=== PATIENT | female | born 1970 | race Caucasian/White ===

== ENCOUNTER 2024-01-24 10:30 | Emergency (ER) | payer BC, SELFPAY ==
--- NOTE | 2024-01-24 10:30 | DI.RAD_ITS ---
Exam(s) XR RIBS LT W PA LAT CHEST EXAM: XR RIBS LT W PA LAT CHEST CLINICAL HISTORY: L rib pain s/p fall TECHNIQUE: 2D digital imaging was performed. Six images are obtained. COMPARISON: CR CHEST 2 VIEWS PA,LAT from 12/31/2007 FINDINGS: MEDIASTINUM: Normal. HEART: Normal. PULMONARY VASCULATURE: Normal. LUNGS: Plate atelectasis is seen in the left lung base. The lungs are otherwise clear. PLEURAL SPACE: No pleural effusion or pneumothorax. BONE:Within normal limits for the patient's age. LEFT RIBS: There is a nondisplaced fracture of the posterolateral aspect of the left 10th and 11th ri bs. OTHER FINDINGS:Normal. IMPRESSION: 1. Linear atelectasis in the left lower lobe laterally. 2. Nondisplaced acute fractures involving the posterolateral aspects of the left 10th and 11th ribs. DATA REPOSITORY: RADIATION DOSE DELIVERED:
--- NOTE | 2024-01-24 10:30 | RT.EKG_ITS ---
APPROVED REPORT Exam: Resting ECG Reason for Exam: fall onto L side of chest Patient Location: E HR:83 bpm ECG Measurements Heart Rate 83 AXIS HI 130 P 54 QRSd 90 QRS -63 QT 386 T 34 QTc 455 Conclusion Sinus rhythm, rate 83 No interval abnormalities No STEMI Inferior infarct, old
[2024-01-24 10:32] VITALS: BP 137/95; PULSE 99; RESP 16; TEMP 36.6; O2SAT 95
--- NOTE | 2024-01-24 10:49 | ED.GENADUL_ITS ---
Discharge Plan Disposition Patient Disposition: Home Discharge Details Clinical Impression: Multiple rib fractures Primary Care Provider: Renata Norris ED Provider: Glo Kauffman Home Meds and New Rx's Prescriptions: No Action CENTRUM 1 TAB tablet 1 tab PO DAILY LAMICTAL 100 MG tablet 100 mg PO DAILY PEPCID AC 20 MG tablet 20 mg PO BID WELLBUTRIN SR 150 MG TABLET.SA DAILY Discharge Instructions Instructions: Rib fractures in adults Additional Instructions: Please call [facility] first thing Friday to schedule follow-up appointment for reevaluation of your rib fractures. I encourage you to continue using incentive spirometer hourly to help prevent pneumonia or other associated complications. I may use Tylenol or ibuprofen for discomfort. Lidocaine patches may also be helpful, Salonpas and IcyHot or great options. Do not apply heat or ice over the patches, but you can use heat or ice when you are not wearing the patches. Avoid sleeping on your left side or twisting. Return to emergency care if you develop any signs of complications of pneumonia such as fever/chills, general malaise, cough, difficulty breathing, new chest pain; or if you are very worried and need to be rechecked again immediately Discharge Data Discharge Date/Time-TO BE ENTERED AT DEPARTURE: 01/24/24 12:42 HPI General Date/Time Provider Initiated Documentation: 01/24/24 10:36 . HPI Narrative: Nuvia is a 53-year-old female who presents to the emergency department today for evaluation of a left lateral rib pain. She reports that last night she was running up carpeted stairs and socks when she slipped forward, landing on her left chest. She denies hitting her head, difficulty breathing, nausea/vomiting, dizziness, palpitations, other injuries. She reports feeling of a popping sensation in her chest when she takes a deep breath that causes discomfort. She says this feels like previous times when she has broken a rib. Denies significant past medical history. Has taken ibuprofen without improvement in symptoms. Physical exam reassuring. Tenderness noted with palpation of lateral rib wall. No flail chest, obvious deformities, abrasions/overlying skin tear, or ecchymosis noted. Easy work of breathing, lung sounds clear bilaterally. Normal heart sounds. DDx includes but is not limited to: Rib fracture, chest wall contusion, muscular injury, pneumothorax. EKG obtained to rule out cardiac abnormality as a result of chest injury, reassuring; NSR rate 83, no changes c/w acute ischemia. Rib x- rays remarkable for posterior nondisplaced fractures of the 10th, 11th, and 12th ribs on the left side With probable fracture of the ninth rib as well. No pneumothorax noted. I independently interpreted the following tests: While in the emergency department Nuvia received lidocaine patch with comfort, with good improvement in symptoms. She declined Tylenol. Reviewed discharge instruction with patient, including use of incentive spirometer, pain control, and red flags indicate need for return to emergency care. She is agreeable with plan of care. Related Data Home Medications ?Medication ?Instructions ?Recorded ?Confirmed Lamictal 100 mg PO DAILY 12/31/07 Wellbutrin Sr DAILY 12/31/07 Pepcid Ac 20 mg PO BID 05/14/10 Centrum 1 tab PO DAILY 12/07/10 Allergies Allergy/AdvReac Type Severity Reaction Status Date / Time Sulfa (Sulfonamide Allergy Intermediate Skin Rash Verified 01/24/24 10:35 Antibiotics) General Stated Complaint: Chest/Rib VERO: 3 Review of Systems Narrative: see HPI Exam Const General: cooperative, healthy appearing, comfortable, no acute distress and well developed Nutritional Appearance: average body habitus Orientation: alert and oriented x3 Neck Neck: normal visual inspection Chest Chest: localized rib tenderness with anteroposterior compression (L lateral ribs) Resp Effort & Inspection: normal respiratory effort and able to speak in complete sentences Auscultation: clear to auscultation bilaterally Cardio Rate: regular rate Rhythm: regular rhythm Skin General skin exam: no rashes or lesions noted and no ecchymosis Trauma: no lacerations or abrasions Wounds: no wounds Course Vital Signs Vital signs: Vital Signs Temperature 36.6 C 01/24/24 10:32 Pulse 99 H 01/24/24 10:32 Respiratory Rate 16 01/24/24 10:32 Blood Pressure 137/95 H 01/24/24 10:32 Pulse Oximetry 95 01/24/24 10:32 Temperature 36.6 C 01/24/24 10:32 Temperature Source Oral 01/24/24 10:32 Pulse 99 H 01/24/24 10:32 Respiratory Rate 16 01/24/24 10:32 Respiratory Effort Normal, Non-Labored 01/24/24 10:36 Blood Pressure 137/95 H 01/24/24 10:32 Blood Pressure Position Standing 01/24/24 10:32 Pulse Oximetry 95 01/24/24 10:32 Oxygen Delivery Method Room Air 01/24/24 10:32 Oxygen Flow Rate 0 01/24/24 10:32 Medical Decision Making Quality:SDOH Health Related Social Needs: No Data to Display PFSH All Active Problems (Updated 01/24/24 @ 12:[address]) Multiple rib fractures (Acute) Social History Smoking/Tobacco Use Status: Never Smoking risk assessment performed?: Yes Alcohol Intake: current Alcohol Intake frequency: a few times a week Drug use: Never Substance use type: does not use Do you feel safe at home: Yes Do you feel safe in your relationship?: Yes PAWSS Have you Been Recently Intoxicated or Drunk Within the Last 30 days?: No Have you Ever Experienced Previous Episodes of Alcohol Withdrawal?: No Have you ever Experienced Withdrawal Seizures?: No Have you ever Experienced Delirium Tremens(DT)s?: No Have you ever undergone Alcohol Rehabilitation Treatment (i.e, [facility])?: No Have you ever Experienced Blackouts?: No Have you ever Combined Alcohol with other Downers within the last 90 days?: No Have you ever Combined Alcohol with any other Substance of Abuse during the last 90 days?: No Positive Blood Alcohol level on Presentation? [PCS.BAL]: No Evidence of Increased Autonomic Activity (i.e. HR>120, tremor, sweating, agitation, nausea)?: No Result: 0
--- NOTE | 2024-01-24 12:05 | DI.VRAD_ITS ---
PROCEDURE INFORMATION: Exam: XR Left Ribs Exam date and time: 01/24/2024 11:29 AM Age: 53 years old Clinical indication: Injury or trauma; Fall; Other: Pain in lower left lateral rib area; Rib area, left side; Blunt trauma TECHNIQUE: Imaging protocol: Radiologic exam of the left ribs. Views: 2 views. COMPARISON: No relevant prior studies available. FINDINGS: Bones/joints: Bony mineralization is within normal limits. There are nondisplaced fractures of the left posterolateral 10th, 11th, 12th ribs. There is probable fracture of the left 9th rib as well. No displaced fracture is identified. Lungs: There are linear opacities at the left lung base likely minimal atelectasis Pleural space: There is no large effusion or pneumothorax Soft tissues: Unremarkable. IMPRESSION: Nondisplaced left lower rib fractures as described. No large effusion or pneumothorax. PROCEDURE INFORMATION: Exam: XR Chest Exam date and time: 01/24/2024 11:29 AM Age: 53 years old Clinical indication: Injury or trauma; Fall; Other: Pain in lower left lateral rib area; Rib area, left side; Blunt trauma TECHNIQUE: Imaging protocol: Radiologic exam of the chest. Views: 2 views. COMPARISON: No relevant prior studies available. FINDINGS: Lungs: Minimal basilar opacities likely minimal atelectasis or scarring. No lobar consolidation or CHF Pleural spaces: No large effusion or pneumothorax Heart/Mediastinum: Heart, mediastinum are unremarkable Bones/joints: There are left posterolateral rib fractures as described above likely involving the left 9th through 12th posterolateral ribs. No displaced fracture is identified. IMPRESSION: 1. Nondisplaced lower left rib fractures as described. No evidence of effusion or pneumothorax 2. Minimal linear opacities at the lung bases likely scarring or atelectasis. Dictated and Authenticated by: Maris Lugo MD. Ordering:JOHANNA Cody MD
[2024-01-24] MEDS: Lidocaine 5% Patch 1 PATCH TP (12:13)
[2024-01-24 12:40] VITALS: BP 134/76; PULSE 80; RESP 16; TEMP 36.6; O2SAT 95
--- NOTE | 2024-01-26 14:02 | NUR.NOTE ---
Nursing Note: patient called and wanted to know about returning to work. Patient encouraged that as long as she is not overdoing it, she could return and encouraged follow up with her primary care physician.
== END 2024-01-24 12:42 | disposition home or self-care (01) ==
PROVIDERS: Emergency Provider Nurse Practitioner Family; PCP Nurse Practitioner Family
DX: S22.42XA Multiple fractures of ribs, left side, initial encounter for closed fracture (principal); W10.8XXA Fall (on) (from) other stairs and steps, initial encounter
CPT/HCPCS: 93005; 99284; 71046; 71100; 93010

== ENCOUNTER 2024-03-24 15:30 | Outpatient (REF) | payer BC, SELFPAY ==
--- OUTSIDE RECORDS SUMMARY | 2024-03-24 15:32 | XMS_ITS | Referral Summary ---
Author Organization [facility] Address [address] [place] [address] Care Team Providers Care Ammunition Storage Superintendent Name Role Phone Unknown, Provider Primary Care Provider Unava ilable Social History Tobacco Use Types Packs/Day Years Used Date Smoking Tobacco: Never Assessed Comments Unknown Sex and Gender Information Value Date Recorded Sex Assigned at Not on file Legal Sex Female 18:07 EST Gender Identity Female 12/03/2023 14:17 EDT Sexual Orientation Not on file Plan of Treatment Not on file Care Teams Ammunition Storage Superintendent Relationship Specialty Start Date End Date Unknown, Provider, PCP - General 12/03/23
--- OUTSIDE RECORDS SUMMARY | 2024-03-24 15:32 | XMS_ITS | Encounter Summary ---
Author Organization [facility] Address [address] [place] [id number] Care Team Providers Care Ingredient Mixer Name Role Phone Snow Moncada NP Primary Care Provider [phone] Encounter Details Date Type Department Care Team (Late st Contact Info) Description 12/02/2023 Orders Only [facility] [place] - [address] [address] Smiley Don, RN [address] [place] [address] Immunity status testing (Primary Dx); Screening examination for pulmonary tuberculosis Social History Tobacco Use Types Packs/Day Years Used Date Smoking Tobacco: Never Assessed Comments Unknown Sex and Gender Information Value Date Recorded Sex Assigned at Not on file Legal Sex Female 18:07 EST Gender Identity Female 12/03/2023 14:17 EDT Sexual Orientation Not on file documented as of this encounter Plan of Treatment Not on file documented as of this encounter Results * VARICELLA IGG ANTIBODY (12/03/2023 14:27 EDT) Varicella IgG Ab Positive See Note 12/04/2023 10:19 EDT [facility] Comment:Presence of detectab le Varicella Zoster virus IgG antibodies. Blood VENOUS BLOOD / Unknown Venipuncture / Unknown 12/03/2023 14:27 EDT 12/03/2023 14:28 EDT Jacoby Sanchez MD IMMUNOLOGY AND SEROLOGY ORDERABLES Final Result [facility] [address] [place] [id number] * RUBELLA IGG ANTIBODY (12/03/2023 14:27 EDT) Rubella IgG Ab Positive See Note 12/04/2023 10:23 EDT [facility] Comment:Positive for IgG ant ibodies to Rubella virus. Blood VENOUS BLOOD / Unknown Venipuncture / Unknown 12/03/2023 14:27 EDT 12/03/2023 14:28 EDT us Jacoby Sanchez MD CHEMISTRY & BLOOD GAS O RDERABLES Final Result [facility] [address] [place] [address] * MUMPS ANTIBODY IGG (12/03/2023 14:27 EDT) Mumps Antibody IgG Positive See Note 12/04/2023 10:23 EDT [facility] Comment:Presence of detectab le mumps virus IgG antibodies. Blood VENOUS BLOOD / Unknown Venipuncture / Unknown 12/03/2023 14:27 EDT 12/03/2023 14:28 EDT us Jacoby Sanchez MD IMMUNOLOGY AND SEROLOGY ORDERABLES Final Result [facility] [address] [place] [address] * MEASLES IGG AB (12/03/2023 14:27 EDT) Measles IgG Ab Positive See Note 12/04/2023 10:21 EDT [facility] Comment:Presence of detectab le measles virus IgG antibodies. Blood VENOUS BLOOD / Unknown Venipuncture / Unknown 12/03/2023 14:27 EDT 12/03/2023 14:28 EDT us Jacoby Sanchez MD IMMUNOLOGY AND SEROLOGY ORDERABLES Final Result Performing Organization Address City/[facility]/ZIP Co de Phone Number [facility] [address] [place], [place] [id number] * HEPATITIS B SURFACE ANTIBODY (12/03/2023 14:27 EDT) Hep B Surface Ab, Quantitative >1,000.0 See Note mIU/mL 12/04/2023 9:28 EDT [facility] Comment: Reference Range for Hep B Surface Ab, Quant: Positive: >= 10.0 mIU/mL Negative: ??< 10.0 mIU/mL Patient is presumed to be immune to infection with Hepatitis B Virus. Hep B Surface Ab, Qualitative Positive See Note 12/04/2023 9:28 EDT [facility] Comment: Reference Range for Hep B Surface Ab, Qual: Unvaccinated: ??Negative Vaccinated: ??Positive Blood VENOUS BLOOD / Unknown Venipuncture / Unknown 12/03/2023 14:27 EDT 12/03/2023 14:28 EDT us Jacoby Sanchez MD CHEMISTRY & BLOOD GAS O RDERABLES Final Result Performing Organization Address [facility] Co de Phone Number [facility] [address] [place], [place] [phone] documented in this encounter Visit Diagnoses Diagnosis Immunity status testing- Primary Antibody response examination Screening examination for pulmonary tuberculosis documented in this encounter Care Teams Ingredient Mixer Relationship Specialty Start Date End Date Snow Moncada, VALERY [address] [place] [address] PCP - General 03/10/15 12/02/23 documented as of this encounter
--- OUTSIDE RECORDS SUMMARY | 2024-03-24 15:32 | XMS_ITS | Encounter Summary ---
Author Organization [facility] Address [address] [place] [address] Care Team Providers Care Team Foreman Name Role Phone Unavailable Primary Care Provider Unavailabl e Encounter Details Date Type Department Care Team (Late st Contact Info) Description 05/14/2010 Results Only [facility] - [facility] [address] [place] [id number] Rosa Morris PA Social History Tobacco Use Types Packs/Day Years Used Date Smoking Tobacco: Never Assessed Comments Unknown Sex and Gender Information Value Date Recorded Sex Assigned at Not on file Legal Sex Female 18:07 EST Gender Identity Female 12/03/2023 14:17 EDT Sexual Orientation Not on file documented as of this encounter Plan of Treatment Not on file documented as of this encounter Procedures Procedure Name Priority Date/Time Associated Diagnosis Comments CYTOPATHOLOGY Routine 05/14/2010 0:00 EST documented in this encounter Results * CYTOPATHOLOGY (05/14/2010 0:00 EST) Pathology Report: CYTOPATHOLOGY REPORT ? Reports generated via electronic interface contain original data; ? however they are lacking the format of the original report. ? Caution should be taken when reading/interpreti ng unformatted reports. ? Name: ? NUVIA SALDIVAR ? Accession #: ? [id number] ? : ? 1970 (Age: 40) ??F ?Collect Date: ? 05/14/2010 ? Location: ? [facility] ? Receive Date: ? 05/15/2010 ? Provider: ROSA ELIJAH PA ? Copy to: ? Final Report ? SPECIMEN ADEQUACY ? Satisfactory for Evaluation ? - transformation zone component present ? GENERAL CATEGORIZATION ? Negative for Intraepithelial Lesion or Malignancy ? Last Menstural Period: 12/20/10 ? Other: Post coital bleeding: diagnostic ? Specimen/Source: ??Pap Test, Cervix/Endocervix, ThinPrep Imaging System with ? manual evaluation ? Document reviewed and electronically signed by: ? Shannon Kristen, [place](ASCP) ? Report ??Date: 05/17/2010 14:56 ? HPV with Pap Test ? Date Ordered: ? 05/17/2010 ? Status: ?? Signed Out ?Date Complete: ? 05/22/2010 ? By: ??System Interface ? Date Reported: ? 05/22/2010 ? Interpretation ? RESULT: Negative for HPV types 16, 18, 31, 33, 35, 39, 45, 51, 52, ? 56, 58, 59, and 68. ? Comments ? Document reviewed and electronically signed by: ? System Interface ? Report date: 05/22/2010 ? By the signature above, the attending physician certifies that he/she has ? personally conducted a gross and/or microscopic examination of the described ? specimens and rendered or confirmed the above diagnosis. ? End of Report ? NELI GRIMM 05/14/2010 05/15/2010 us Rosa WILLIS PATHOLOGY ORDERABLES Final Resul t [facility] [address] [place] [address] documented in this encounter Visit Diagnoses Not on filedocumented in this encounter
--- OUTSIDE RECORDS SUMMARY | 2024-03-24 15:32 | XMS_ITS | Encounter Summary ---
Author Organization [facility] Address [address] [place] [address] Care Team Providers Care Muck Farmer Name Role Phone Unknown, Provider Primary Care Provider Unava ilable Encounter Details Date Type Department Care Team (Late st Contact Info) Description 12/03/2023 14:30 EDT Phlebotomy Only [facility] - [address] [address] [facility] Immunity status testing; Screening examination for pulmonary tuberculosis Social History [...] Procedure Name Priority Date/Time Associated Diagnosis Comments QUANTIFERON MITOGEN (PERFORMABLE) Routine 12/03/2023 14:27 EDT Screening examination for pulmonary tuberculosis QUANTIFERON TB2 (PERFORMABLE) Routine 12/03/2023 14:27 EDT Screening examination for pulmonary tuberculosis QUANTIFERON TB1 (PERFORMABLE) Routine 12/03/2023 14:27 EDT Screening examination for pulmonary tuberculosis QUANTIFERON NIL (PERFORMABLE) Routine 12/03/2023 14:27 EDT Screening examination for pulmonary tuberculosis QUANTIFERON INTERPRETATION (PERFORMABLE) Today 12/03/2023 14:27 EDT Screening examination for pulmonary tuberculosis QUANTIFERON TB GOLD PLUS Routine 12/03/2023 14:27 EDT Screening examination for pulmonary tuberculosis MEASLES IGG AB Routine 12/03/2023 14:27 EDT Immunity status testing RUBELLA IGG ANTIBODY Routine 12/03/2023 14:27 EDT Immunity status testing HEPATITIS B SURFACE ANTIBODY Routine 12/03/2023 14:27 EDT Immunity status testing VARICELLA IGG ANTIBODY Routine 14:27 EDT Immunity status testing MUMPS ANTIBODY IGG Routine 12/03/2023 14 :27 EDT Immunity status testing documented in this encounter Results * QUANTIFERON INTERPRETATION (PERFORMABLE) (12/03/2023 14:27 EDT) Quantiferon Interpretation Negative Negative 12/04/2023 13:44 EDT [facility] Comment:No interferon-gamma response to M. tuberculosis antigens was detected. ??Infection with M. tuberculosis is unlikely. A single negative result does not exclude infection with M. tuberculosis. ??In patients at high risk for M. tuberculosis infection, a second test should be considered. TB1 Ag minus Nil 0.07 IU/ml 12/04/19 13:44 EDT [facility] TB2 Ag minus Nil 0.07 IU/mL 12/04/19 13:44 EDT [facility] Blood VENOUS BLOOD / Unknown Venipuncture / Unknown 12/03/2023 14:27 EDT 12/04/2023 13:15 EDT us Jacoby Sanchez MD IMMUNOLOGY AND SEROLOGY ORDERABLES Final Result [facility] [address] [place] [address] * QUANTIFERON MITOGEN (PERFORMABLE) (12/03/2023 14:27 EDT) Blood VENOUS BLOOD / Unknown Venipuncture / Unknown 12/03/2023 14:27 EDT 12/03/2023 14:28 EDT us Jacoby Sanchez MD IMMUNOLOGY AND SEROLOGY ORDERABLES Final Result Performing Organization Address City/[facility]/ZIP Co de Phone Number [facility] [address] [place], [place] [id number] * QUANTIFERON TB2 (PERFORMABLE) (12/03/2023 14:27 EDT) Blood VENOUS BLOOD / Unknown Venipuncture / Unknown 12/03/2023 14:27 EDT 12/03/2023 14:28 EDT Jacoby Sanchez MD IMMUNOLOGY AND SEROLOGY ORDERABLES Final Result Performing Organization Address [facility] Co de Phone Number [facility] [address] [place] [phone] * QUANTIFERON TB1 (PERFORMABLE) (12/03/2023 14:27 EDT) Blood VENOUS BLOOD / Unknown Venipuncture / Unknown 12/03/2023 14:27 EDT 12/03/2023 14:28 EDT Jacoby Sanchez MD IMMUNOLOGY AND SEROLOGY ORDERABLES Final Result Performing Organization Address [facility] Co de Phone Number [facility] [address] [place] [phone] * QUANTIFERON NIL (PERFORMABLE) (12/03/2023 14:27 EDT) Blood VENOUS BLOOD / Unknown Venipuncture / Unknown 12/03/2023 14:27 EDT 12/03/2023 14:28 EDT us Jacoby Sanchez MD IMMUNOLOGY AND SEROLOGY ORDERABLES Final Result Performing Organization Address [facility] Co de Phone Number [facility] [address] [place] [phone] * VARICELLA IGG ANTIBODY (12/03/2023 14:27 EDT) Varicella IgG Ab Positive See Note 12/04/2023 10:19 EDT [facility] Comment:Presence of detectab le Varicella Zoster virus IgG antibodies. Blood VENOUS BLOOD / Unknown Venipuncture / Unknown 12/03/2023 14:27 EDT 12/03/2023 14:28 EDT us Jacoby Sanchez MD IMMUNOLOGY AND SEROLOGY ORDERABLES Final Result [facility] [address] [place] [address] * RUBELLA IGG ANTIBODY (12/03/2023 14:27 EDT) Rubella IgG Ab Positive See Note 12/04/2023 10:23 EDT [facility] Comment:Positive for IgG ant ibodies to Rubella virus. Blood VENOUS BLOOD / Unknown Venipuncture / Unknown 12/03/2023 14:27 EDT 12/03/2023 14:28 EDT us Jacoby Sanchez MD CHEMISTRY & BLOOD GAS O RDERABLES Final Result Performing Organization Address [facility] Co de Phone Number [facility] [address] [place] [address] * MUMPS ANTIBODY IGG (12/03/2023 14:27 EDT) Mumps Antibody IgG Positive See Note 12/04/2023 10:23 EDT [facility] Comment:Presence of detectab le mumps virus IgG antibodies. Blood VENOUS BLOOD / Unknown Venipuncture / Unknown 12/03/2023 14:27 EDT 12/03/2023 14:28 EDT us Jacoby Sanchez MD IMMUNOLOGY AND SEROLOGY ORDERABLES Final Result Performing Organization Address City/[facility]/ZIP Co de Phone Number [facility] [address] [place] [address] * MEASLES IGG AB (12/03/2023 14:27 EDT) Measles IgG Ab Positive See Note 12/04/2023 10:21 EDT [facility] Comment:Presence of detectab le measles virus IgG antibodies. Blood VENOUS BLOOD / Unknown Venipuncture / Unknown 12/03/2023 14:27 EDT 12/03/2023 14:28 EDT Jacoby Sanchez MD IMMUNOLOGY AND SEROLOGY ORDERABLES Final Result Performing Organization Address City/[facility] Co de Phone Number [facility] [address] [place] [address] * HEPATITIS B SURFACE ANTIBODY (12/03/2023 14:27 EDT) Hep B Surface Ab, Quantitative >1,000.0 See Note mIU/mL 12/04/2023 9:28 EDT [facility] Comment: Reference Range for Hep B Surface Ab, Quant: Positive: >= 10.0 mIU/mL Negative: ??< 10.0 mIU/mL Patient is presumed to be immune to infection with Hepatitis B Virus. Hep B Surface Ab, Qualitative Positive See Note 12/04/2023 9:28 EDT [facility] Comment: Reference Range for Hep B Surface Ab, Qual: Unvaccinated: ??Negative Vaccinated: ??Positive Blood VENOUS BLOOD / Unknown Venipuncture / Unknown 12/03/2023 14:27 EDT 12/03/2023 14:28 EDT Jacoby Sanchez MD CHEMISTRY & BLOOD GAS O RDERABLES Final Result Performing Organization Address [facility]/ZIP Co de Phone Number [facility] [address] [place] [phone] documented in this encounter Visit Diagnoses Diagnosis Immunity status testing Antibody response examination Screening examination for pulmonary tuberculosis documented in this encounter Care Teams Muck Farmer Relationship Specialty Start Date End Date Unknown, Provider, PCP - General 12/03/23 documented as of this encounter
--- OUTSIDE RECORDS SUMMARY | 2024-03-24 15:32 | XMS_ITS | Encounter Summary ---
Author Organization [facility] Address [address] [place] [address] Care Team Providers Care Degreaser Name Role Phone Snow Moncada NP Primary Care Provider [phone] Encounter Details Date Type Department Care Team (Latest Contact Info) Description 08/21/2015 12:44 EDT - 08/21/2015 23:59 EDT Hospital Encounter [address] [address] Unknown, Provider, MD Discharge Disposition: Home or Self Care Social History Tobacco Use Types Packs/Day Years Used Date Smoking Tobacco: Never Assessed Comments Unknown Sex and Gender Information Value Date Recorded Sex Assigned at Not on file Legal Sex Female 18:07 EST Gender Identity Female 12/03/2023 14:17 EDT Sexual Orientation Not on file documented as of this encounter Discharge Disposition Disposition Code Departure Means Destination Home or Self Jail documented in this encounter Plan of Treatment Not on file documented as of this encounter Visit Diagnoses Not on filedocumented in this encounter Care Teams Degreaser Relationship Specialty Start Date End Date Snow Moncada NP [address] [place] [address] PCP - General 03/10/15 12/02/23 documented as of this encounter
--- OUTSIDE RECORDS SUMMARY | 2024-03-24 15:32 | XMS_ITS | Encounter Summary ---
Author Organization [facility] Address [address] [place] [address] Care Team Providers Care Furnace Mason Name Role Phone Unavailable Primary Care Provider Unavailabl e Encounter Details Date Type Department Care Team (Late st Contact Info) Description 07/04/2008 Before PRISM Converted Visit ([facility]) [facility] - Maple conversion [address] [place] [address] Rosa Morris PA Social History Tobacco Use [...] Procedure Name Priority Date/Time Associated Diagnosis Comments HPV DETECTION, HIGH RISK TYPES Routine 07/04/2008 9:58 EDT CYTOPATHOLOGY Routine 07/04/2008 0:00 EDT documented in this encounter Results * HUMAN PAPILLOMA VIRUS DNA TEST (07/04/2008 9:58 EDT) Specimen Description Cervix, ThinPrep vial [facility] Result Negative for HPV types 16, 18, 31, 33, 35, 39, 45, 51, 52, 56, 58, 59, and 68. [facility] Report Status Final 07/13/2008 [facility] 07/04/2008 9:58 EDT 07/08/2008 9:58 EDT us Rosa WILLIS MICROBIOLOGY - GENERAL ORDERABLE S Final Result [facility] [address] [place] [address] * CYTOPATHOLOGY (07/04/2008 0:00 EDT) Pathology Report: CYTOPATHOLOGY REPORT ? Reports generated via electronic interface contain original data; ? however they are lacking the format of the original report. ? Caution should be taken when reading/interpreti ng unformatted reports. ? Name: ? NUVIA SALDIVAR ? Accession #: ? [id number] ? : ? 1970 (Age: 38) ??F ?Collect Date: ? 07/04/2008 ? Location: ? [facility] ? Receive Date: ? 07/05/2008 ? Provider: ?ROSA ELIJAH PA ? Copy to: ? Specimen/Source: ?Pap Test, Cervix/Endocervix, ThinPrep Imaging System ? with manual evaluation ? Last Menstrual Period: ? 3/4/09 ? Other: ? HPVDX - HPV testing requested regardless of diagnosis on current ThinPrep Pap ?? test. ? SPECIMEN ADEQUACY ? Satisfactory for Evaluation ? - transformation zone component present ? GENERAL CATEGORIZATION ? Negative for Intraepithelial Lesion or Malignancy ? Document reviewed and electronically signed by: ? Fish Dugan CT(ASCP) ? Report Date: ??07/07/2008 14:23 ? End of Report ? [facility] 07/04/2008 07/05/2008 us Rosa WILLIS PATHOLOGY ORDERABLES Final Resul t [facility] [address] [place] [address] documented in this encounter Visit Diagnoses Not on filedocumented in this encounter
--- OUTSIDE RECORDS SUMMARY | 2024-03-24 15:32 | XMS_ITS | Encounter Summary ---
Author Organization [facility] Address [address] [place] [address] Care Team Providers Care Chlorination Operator Name Role Phone Snow Moncada NP Primary Care Provider [phone] Encounter Details Date Type Department Care Team (Late st Contact Info) Description 08/21/2015 Historical Results Only [facility] Results [address] [place], [place] [address] Laura Ernst PA-C [address] [facility] [address] [place], [place] [address] Social History Tobacco Use Types Packs/Day Years [...] Procedure Name Priority Date/Time Associated Diagnosis Comments XR ANKLE RIGHT 3 OR MORE VIEWS 08/21/2015 16:07 EDT XR FOOT RIGHT 3 OR MORE VIEWS 08/21/2015 16:06 EDT documented in this encounter Results * XR ANKLE RIGHT 3 OR MORE VIEWS (08/21/2015 16:07 EDT) Anatomical Region Laterality Modality Lower Extremities, Ankle Right Other 08/21/2015 16:0 7 EDT Narrative 08/21/2015 16:11 EDT ? EXAM: RADIOLOGY EXPRESS CARE/EXP CARE XR ??EX. D/ (1126) ? CLINICAL INFORMATION: ? PAIN IN RIGHT FOOT - M79.671 ? PAIN ON LATERAL AND MID JOINT LINE ? Indication: PAIN IN RIGHT FOOT - M79.671: PAIN ON LATERAL AND MID ? JOINT LINE. ? Technique: 3 views of the right ankle were obtained. ? Comparison: None. ? Findings: There is swelling of the lateral ankle and anterior mid ? foot soft tissues. The ankle mortise is symmetric and intact. No ? fracture is identified. Bone density is normal. There is a moderate ? sized plantar calcaneal spur. ? Impression: ? 1. Soft tissue swelling. ? 2. Calcaneal spur. ? REPORT SIGNED IN OTHER VENDOR SYSTEM 08/21/2015 ?Reported By: Benito Cortez MD ? CC: ? Transcribed Date/Time: 08/21/2015 (1611) ? Manager Generation: ? Printed Date/Time: 10/08/2018 (0937) ? PAGE 1 ? Signed Report ? Procedure Note Benito Cortez MD - 03/03/2019 EXAM: RADIOLOGY EXPRESS CARE/EXP CARE XR EX. D/ (1106) CLINICAL INFORMATION: PAIN IN RIGHT FOOT - M79.671 PAIN ON LATERAL AND MID JOINT LINE Indication: PAIN IN RIGHT FOOT - M79.671: PAIN ON LATERAL AND MID JOINT LINE. Technique: 3 views of the right ankle were obtained. Comparison: None. Findings: There is swelling of the lateral ankle and anterior mid foot soft tissues. The ankle mortise is symmetric and intact. No fracture is identified. Bone density is normal. There is a moderate sized plantar calcaneal spur. Impression: 1. Soft tissue swelling. 2. Calcaneal spur. REPORT SIGNED IN OTHER VENDOR SYSTEM 08/21/2015 Reported By: Benito Cortez MD CC: Transcribed Date/Time: 08/21/2015 (1611) Manager Generation: Printed Date/Time: 10/08/2018 (8184) PAGE 1 Signed Report Laura Ernst PA-C IMG DIAGNOSTIC IMAGING ORDERA BLES Final Result * XR FOOT RIGHT 3 OR MORE VIEWS (08/21/2015 16:06 EDT) Anatomical Region Laterality Modality Lower Extremities Right Other 08/21/2015 16:0 6 EDT Narrative 08/21/2015 16:10 EDT ? EXAM: RADIOLOGY EXPRESS CARE/EXP CARE XR ??EX. D/ (1556) ? CLINICAL INFORMATION: ? PAIN IN RIGHT FOOT - M79.671 ? PAIN IN 1-2ND METACARPALS ? Indication: PAIN IN RIGHT FOOT - M79.671: PAIN IN 1-2ND METACARPALS. ? Comparison: None. ? Technique: AP, oblique and lateral views of the right foot were ? obtained. ? Findings: There is a soft tissue and bony bunion with moderate hallux ? valgus deformity. There are mild degenerative arthritic changes ? within the great toe metatarsal phalangeal joint. No fracture or ? dislocation is identified. Bone density is normal. There is a ? moderate sized plantar calcaneal spur. ? Impression: ? 1. Bunion and hallux valgus deformity. ? 2. Osteoarthrosis. ? 3. Calcaneal spur. ? REPORT SIGNED IN OTHER VENDOR SYSTEM 08/21/2015 ?Reported By: Benito Cortez MD ? CC: ? Transcribed Date/Time: 08/21/2015 (5660) ? Manager Generation: ? Printed Date/Time: 10/08/2018 (0937) ? PAGE 1 ? Signed Report ? Procedure Note Benito Cortez MD - 03/03/2019 EXAM: RADIOLOGY EXPRESS CARE/EXP CARE XR EX. D/ (1556) CLINICAL INFORMATION: PAIN IN RIGHT FOOT - M79.671 PAIN IN 1-2ND METACARPALS Indication: PAIN IN RIGHT FOOT - M79.671: PAIN IN 1-2NDMETACARPALS. Comparison: None. Technique: AP, oblique and lateral views of the right foot were obtained. Findings: There is a soft tissue and bony bunion with moderatehallux valgus deformity. There are mild degenerative arthritic changes within the great toe metatarsal phalangeal joint. No fracture or dislocation is identified. Bone density is normal. There is a moderate sized plantar calcaneal spur. Impression: 1. Bunion and hallux valgus deformity. 2. Osteoarthrosis. 3. Calcaneal spur. REPORT SIGNED IN OTHER VENDOR SYSTEM 08/21/2015 Reported By: Bneito Cortez MD CC: Transcribed Date/Time: 08/21/2015 (2310) Manager Generation: [email or web address] Printed Date/Time: 10/08/2018 (7250) PAGE 1 Signed Report Laura Ernst PA-C IMG DIAGNOSTIC IMAGING ORDERA BLES Final Result documented in this encounter Visit Diagnoses Not on filedocumented in this encounter Care Teams Chlorination Operator Relationship Specialty Start Date End Date Snow Moncada NP [address] [place] [address] PCP - General 03/10/15 12/02/23 documented as of this encounter
--- OUTSIDE RECORDS SUMMARY | 2024-03-24 15:32 | XMS_ITS | Clinical Summary ---
Author Organization [facility] Address [address] [place] [address] Care Team Providers Care Flower Machine Operator Name Role Phone Unknown, Provider MD Primary Care Provider Unava ilable Social History Tobacco Use Types Packs/Day Years Used Date Smoking Tobacco: Never Assessed Comments Unknown Sex and Gender Information Value Date Recorded Sex Assigned at Not on file Legal Sex Female 18:07 EST Gender Identity Female 12/03/2023 14:17 EDT Sexual Orientation Not on file Plan of Treatment Health Maintenance Due Date Last Done Comments Hepatitis C Screen 1970 Hepatitis B Vaccine (1 of 3 - 19+ 3-dose series) 04/05 COVID-19 Vaccine ( season) 2023 Care Teams Flower Machine Operator Relationship Specialty Start Date End Date Unknown, Provider, PCP - General 12/03/23
--- OUTSIDE RECORDS SUMMARY | 2024-03-24 15:33 | XMS_ITS | Encounter Summary ---
Author Organization [facility] Address [address] [place] [address] Care Team Providers Care High [employer] Home Economics Teacher Name Role Phone Unavailable Primary Care Provider Unavailabl e Encounter Details Date Type Department Care Team (Late st Contact Info) Description 01/05/2007 Results Only [facility] - Maple conversion [address] [place] [address] Snow Coats, COMPUTER TYPESETTER [facility] [address] [place] [address] Social History Tobacco Use Types Packs/Day Years [...] Priority Date/Time Associated Diagnosis Comments CYTOPATHOLOGY Routine 01/05/2007 0:00 EDT documented in this encounter Results * CYTOPATHOLOGY (01/05/2007 0:00 EDT) Pathology Report: CYTOPATHOLOGY REPORT Reports generated via electronic interface contain original data; however they are lacking the format of the original report. Caution should be taken when reading/interpreti ng unformatted reports. Name: ? NUVIA SLADIVAR ? Accession #: ? [id number] : ? 1970 (Age: 36) ??F ?Collect Date: ? 01/05/2007 Location: ? [facility] ? Receive Date: ? 01/06/2007 Provider: ?SNOW COATS COMPUTER TYPESETTER Copy to: ? Specimen/Source: ?ThinPrep Pap Test, Cervix/Endocervix, processed on [employer] ThinPrep Imaging System, with manual evaluation Last Menstrual Period: ? 12/16/06 Other: ? HPVA - HPV testing requested if ASC-US on the current ThinPrep Pap test. ? SPECIMEN ADEQUACY ? Satisfactory for Evaluation - transformation zone component present GENERAL CATEGORIZATION ? Negative for Intraepithelial Lesion or Malignancy ? Document reviewed and electronically signed by: ? BHARGAVI Andrea(ASCP) ? Report Date: ??01/12/2007 12:18 End of Report [facility] 01/05/2007 01/06/2007 us Snow Coats NP PATHOLOGY ORDERABLES Final Result [facility] [address] [place] [address] documented in this encounter Visit Diagnoses Not on filedocumented in this encounter
--- OUTSIDE RECORDS SUMMARY | 2024-03-24 15:33 | XMS_ITS | Encounter Summary ---
Author Organization [facility] Address [address] [place] [address] Care Team Providers Care Adult Literacy Instructor Name Role Phone Unavailable Primary Care Provider Unavailabl e Encounter Details Date Type Department Care Team (Late st Contact Info) Description 10/24/2005 Results Only [facility] - Maple conversion [address] [place] [address] Snow Coats, SPRINKLER INSPECTOR [facility] [address] [place] [address] Social History Tobacco Use Types [...] Priority Date/Time Associated Diagnosis Comments CYTOPATHOLOGY Routine 10/24/2005 0:00 EDT documented in this encounter Results * CYTOPATHOLOGY (10/24/2005 0:00 EDT) Pathology Report: CYTOPATHOLOGY REPORT Reports generated via electronic interface contain original data; however they are lacking the format of the original report. Caution should be taken when reading/interpreti ng unformatted reports. Name: ? NUVIA SALDIVAR ? Accession #: ? [id number] : ? 1970 (Age: 35) ??F ?Collect Date: ? 10/24/2005 Location: ? [facility] ? Receive Date: ? 10/25/2005 Provider: ?SNOW COATS SPRINKLER INSPECTOR Copy to: ? Specimen/Source: ?ThinPrep Pap Test, Cervix, processed on [employer] AGPrep Imaging System, with manual evaluation Last Menstrual Period: ? 10/05/05 Other: ? HPVA - HPV testing requested if ASC-US on the current ThinPrep Pap test. ? SPECIMEN ADEQUACY ? Satisfactory for Evaluation - transformation zone component present GENERAL CATEGORIZATION ? Negative for Intraepithelial Lesion or Malignancy INTERPRETATION ? Fungal organisms present morphologically consistent with Fawn species. ? Document reviewed and electronically signed by: ? MERYL Wolf(ASCP) ? Report Date: ??11/01/2005 12:16 End of Report [facility] 10/24/2005 10/25/2005 us Snow Coats NP PATHOLOGY ORDERABLES Final Result [facility] [address] [place] [address] documented in this encounter Visit Diagnoses Not on filedocumented in this encounter
--- OUTSIDE RECORDS SUMMARY | 2024-03-24 15:33 | XMS_ITS | Encounter Summary ---
Author Organization [facility] Address [address] [place] [address] Care Team Providers Care Beverage Distiller Name Role Phone Unavailable Primary Care Provider Unavailabl e Encounter Details Date Type Department Care Team ([facility] st Contact Info) Description 07/17/2004 8:55 EST Hospital Encounter [address] [address] Rachelle Hale MD [address] [place] [address] Social History Tobacco Use Types Packs/Day Years [...] Procedure Name Priority Date/Time Associated Diagnosis Comments CREATININE Routine 07/17/2004 9:00 EST BUN Routine 07/17/2004 9:00 EST TSH Routine 07/17/2004 9:00 EST CO2 Routine 07/17/2004 9:00 EST LITHIUM Routine 07/17/2004 9:00 EST documented in this encounter Results * TSH (07/17/2004 9:00 EST) TSH 3.64 0.35 - 5.50 uIU/ml [facility] 07/17/2004 9:00 EST 07/17/2004 9:20 EST us Rachelle Hale MD CHEMISTRY & BLOOD GAS ORDERAB LES Final Result Performing Organization Address City/[facility] Co de Phone Number [facility] [address] [place] [address] * LITHIUM (07/17/2004 9:00 EST) [place] 0.6 0.6 - 1.2 mEq/L [facility] 07/17/2004 9:00 EST 07/17/2004 9:20 EST us Rachelle Hale MD CHEMISTRY & BLOOD GAS ORDERAB LES Final Result Performing Organization Address [facility] de Phone Number [facility] [address] [place] [address] * CREATININE (07/17/2004 9:00 EST) Creatinine 1.0 0.7 - 1.5 mg/dl [facility] 07/17/2004 9:00 EST 07/17/2004 9:20 EST us Rachelle Hale MD HISTORICAL LAB FOR SQ LOAD Fi nal Result Performing Organization Address [facility] de Phone Number [facility] [address] [place] [address] * CO2 (07/17/2004 9:00 EST) CO2 28 24 - 32 mEq/L [facility] 07/17/2004 9:00 EST 07/17/2004 9:20 EST us Rachelle Hale MD CHEMISTRY & BLOOD GAS ORDERAB LES Final Result Performing Organization Address [facility] Co de Phone Number [facility] [address] [place] [address] * BUN (07/17/2004 9:00 EST) BUN 15 10 - 26 mg/dl [facility] 07/17/2004 9:00 EST 07/17/2004 9:20 EST us Rachelle Hale MD CHEMISTRY & BLOOD GAS ORDERAB LES Final Result [facility] [address] [place] [address] documented in this encounter Visit Diagnoses Not on filedocumented in this encounter
--- OUTSIDE RECORDS SUMMARY | 2024-03-24 15:33 | XMS_ITS | Encounter Summary ---
Author Organization [facility] Address [address] [place] [address] Care Team Providers Care Dramatic Teacher Name Role Phone Unavailable Primary Care Provider Unavailabl e Encounter Details Date Type Department Care Team (Late st Contact Info) Description 12/11/2004 Results Only [facility] - Maple conversion [address] [place] [address] Penny Tariq, [facility] [address] [place] [address] [place] [address] Social History Tobacco Use Types Packs/Day Years [...] Priority Date/Time Associated Diagnosis Comments CYTOPATHOLOGY Routine 12/11/2004 0:00 EDT documented in this encounter Results * CYTOPATHOLOGY (12/11/2004 0:00 EDT) Pathology Report: CYTOPATHOLOGY REPORT Reports generated via electronic interface contain original data; however they are lacking the format of the original report. Caution should be taken when reading/interpreti ng unformatted reports. Name: ? NUVIA SALDIVAR ? Accession #: ? [id number] : ? 1970 (Age: 34) ??F ?Collect Date: ? 12/11/2004 Location: ? [facility] ? Receive Date: ? 12/12/2004 Provider: ?PENNY TARIQ PRODUCTION MACHINIST Copy to: ? Specimen/Source: ?ThinPrep Pap Test, Cervix/Endocervix, processed on [employer] ThinPrep Imaging System, with manual evaluation Last Menstrual Period: ? Other: ? HPVA - HPV testing requested if ASC-US on the current ThinPrep Pap test. ? SPECIMEN ADEQUACY ? Satisfactory for Evaluation - transformation zone component present GENERAL CATEGORIZATION ? Negative for Intraepithelial Lesion or Malignancy INTERPRETATION ? Fungal organisms present morphologically consistent with Fawn species. ? Document reviewed and electronically signed by: ? BHARGAVI Toledo(ASCP) ? Report Date: ??12/20/2004 12:14 End of Report NELI [facility] 12/11/2004 12/12/2004 us Penny Tariq PRODUCTION MACHINIST PATHOLOGY ORDERABLES Final R esult [facility] [address] [place] [address] documented in this encounter Visit Diagnoses Not on filedocumented in this encounter
--- OUTSIDE RECORDS SUMMARY | 2024-03-24 15:33 | XMS_ITS | Encounter Summary ---
Author Organization [facility] Address [address] [place] [address] Care Team Providers Care Medical Staff Credentialing Coordinator Name Role Phone Unavailable Primary Care Provider Unavailabl e Encounter Details Date Type Department Care Team (Late st Contact Info) Description 10/27/2000 Results Only [facility] - Maple conversion [address] [place] [address] Earnest Duran, DO [address] [facility] [address] [place] [phone] Social History Tobacco Use Types Packs/Day Years [...] Procedure Name Priority Date/Time Associated Diagnosis Comments SURGICAL PATHOLOGY Routine 10/27/2000 0:00 EDT documented in this encounter Results * SURGICAL PATHOLOGY (10/27/2000 0:00 EDT) Pathology Report: SURGICAL PATHOLOGY REPORT Reports generated via electronic interface contain original data; however they are lacking the format of the original report. Caution should be taken when reading/interpreti ng unformatted reports. Name: ? NUVIA SALDIVAR ? Accession #: ? [id number] ? : ? 1970 (Age: 30) ??F ? Collect Date: ? 10/27/2000 ? Location: ? [facility] ? Receive Date: ? 10/28/2000 ? Provider: EARNEST DURAN DO Copy to: DAVID MARTÍNEZ MD ? Final Pathologic Diagnosis: A. ?Stomach, antrum, biopsy: 1. ?Antral and body type mucosa with no pathologic features. B. ?Esophagus, lower, biopsy: 1. ?Gastroesophageal junction epithelium with changes suggestive of reflux esophagitis. C. ?Esophagus, middle, biopsies: ? 1. ?? Squamous epithelium with no pathologic features. Document reviewed and electronically signed by: Layne Geiger MD Report ??Date: 10/31/2000 20:59 By the signature above, the attending physician certifies that he/she has personally conducted a gross and/or microscopic examination of the described specimens and rendered or confirmed the above diagnosis. Specimen(s) Received: A. ?Antral bx B. ?Esophageal bx, lower C. ?Esophageal bx, middle Clinical History: ? On Prilosec, GERD, came off Prilosec for short period but symptoms returned Gross Description: ? Received in [place]e' s fixative labelled Jana and #1 antral bx are three fragments of biopsy tissue which range in maximum dimension from 0.5 to 0.2 cm. ??All three are submitted intact as (A). Received in [employer]e' s fixative labelled Guldager and #2 esophageal bx lower are four fragments of irregularly shaped biopsy tissue each measuring approximately 0.5 cm in maximum dimension. ??All four are submitted intact as (B). Received in Hollande' s fixative labelled Guldager and #3 esophageal bx middle are four fragments of biopsy tissue ranging in maximum dimension from 0.5 to 0.2 cm. ??All four are submitted intact as (C). (Dr. Wolfe)/tmg End of Report NELI GRIMM 10/27/2000 10/28/2000 15: 42 EDT us Earnest Duran DO PATHOLOGY ORDERABLES Fi nal Result [facility] [address] [place] [address] documented in this encounter Visit Diagnoses Not on filedocumented in this encounter
--- OUTSIDE RECORDS SUMMARY | 2024-03-24 15:33 | XMS_ITS | Encounter Summary ---
Author Organization [facility] Address [address] [place] [address] Care Team Providers Care Lot Associate Name Role Phone Unavailable Primary Care Provider Unavailabl e Encounter Details Date Type Department Care Team (Late st Contact Info) Description 05/21/2002 Results Only [facility] - Maple conversion [address] [place] [address] Penny Tariq, [facility] [address] [facility] [address] [place] [address] Social History Tobacco Use Types [...] Priority Date/Time Associated Diagnosis Comments CYTOPATHOLOGY Routine 05/21/2002 0:00 EST documented in this encounter Results * CYTOPATHOLOGY (05/21/2002 0:00 EST) Pathology Report: CYTOPATHOLOGY REPORT Reports generated via electronic interface contain original data; however they are lacking the format of the original report. Caution should be taken when reading/interpreti ng unformatted reports. Name: ? NUVIA SALDIVAR ? Accession #: ? [id number] : ? 1970 (Age: 32) ??F ?Collect Date: ? 05/21/2002 Location: ? [facility] ? Receive Date: ? 05/25/2002 Provider: ?PENNY TARIQ MARKETING SERVICES MANAGER Copy to: ? Specimen/Source: ?ThinPrep Pap Test, Cervix/Endocervix Last Menstrual Period: ? 05/06/02 ? SPECIMEN ADEQUACY ? Satisfactory for Evaluation - transformation zone component present GENERAL CATEGORIZATION ? Negative for Intraepithelial Lesion or Malignancy ? Document reviewed and electronically signed by: ? MERYL Wolf(ASCP) ? Report Date: ??05/26/2002 14:16 End of Report NELI GR[facility] 05/21/2002 05/25/2002 us Penny Tariq MARKETING SERVICES MANAGER PATHOLOGY ORDERABLES Final R esult [facility] [address] [place] [address] documented in this encounter Visit Diagnoses Not on filedocumented in this encounter
[2024-03-30 21:04] LABS: Calprotectin 71.8 mcg/g
== END 2024-03-24 15:31 | disposition home or self-care (01) ==
LOC: NCHCN 15:30
PROVIDERS: PCP Nurse Practitioner Family; Visit Provider Family Medicine
DX: K92.1 Melena (principal)
CPT/HCPCS: 83993; 87177

== ENCOUNTER 2024-04-12 12:20 | Outpatient (REF) | payer BC, SELFPAY ==
--- OUTSIDE RECORDS SUMMARY | 2024-04-12 12:23 | XMS_ITS | Encounter Summary ---
Author Organization [facility] Address [address] [place] [address] Care Team Providers Care Nuclear Medicine Physician Name Role Phone Unavailable Primary Care Provider Unavailabl e Encounter Details Date Type Department Care Team (Late st Contact Info) Description 05/14/2010 Results Only [facility] Laboratory Services - [facility] ([facility] [address] [place] [address] Rosa Morris PA Social History Tobacco [...] ? NUVIA SALDIVAR ? Accession #: ? [id number] ? : ? 1970 (Age: 40) ??F [...] PATHOLOGY ORDERABLES Final Resul t [facility] [address] [place] [address] documented in this encounter Visit Diagnoses Not on filedocumented in this encounter
--- OUTSIDE RECORDS SUMMARY | 2024-04-12 12:23 | XMS_ITS | Encounter Summary ---
Author Organization [facility] Address [address] [place] [address] Care Team Providers Care Track Liner Operator Name Role Phone Unavailable Primary Care Provider Unavailabl e Encounter Details Date Type Department Care Team (Late st Contact Info) Description 07/04/2008 Before PRISM Converted Visit (Maple) [facility] - Maple conversion [address] [place] [address] Rosa Morris PA Social History Tobacco Use [...] S Final Result [facility] [address] [place] [address] * CYTOPATHOLOGY (07/04/2008 0:00 EDT) Pathology Report: CYTOPATHOLOGY REPORT ? Reports generated via electronic interface contain original data; ? however they are lacking the format of the original report. ? Caution should be taken when reading/interpreti ng unformatted reports. ? Name: ? NUVIA SADLIVAR ? Accession #: ? [id number] ? : ? 1970 (Age: 38) ??F [...] Final Resul t [facility] [address] [place] [address] documented in this encounter Visit Diagnoses Not on filedocumented in this encounter
--- OUTSIDE RECORDS SUMMARY | 2024-04-12 12:23 | XMS_ITS | Encounter Summary ---
Author Organization [facility] Address [address] [place] [address] Care Team Providers Care Body Component Engineer Name Role Phone Unavailable Primary Care Provider Unavailabl e Encounter Details Date Type Department Care Team (Late st Contact Info) Description 05/21/2002 Results Only [facility] - Maple conversion [address] [place] [address] Penny Tariq, [facility] [address] [facility] [place] [address] Social History Tobacco Use Types [...] ? NUVIA SALDIVAR ? Accession #: ? [id number] : ? 1970 (Age: 32) ??F ?Collect Date: ? 05/21/2002 Location: ? [facility] ? Receive Date: ? 05/25/2002 Provider: ?PENNY TARIQ BILINGUAL TRAINER Copy to: ? Specimen/Source: ?ThinPrep Pap Test, Cervix/Endocervix Last Menstrual Period: ? 05/06/02 ? SPECIMEN ADEQUACY ? Satisfactory for Evaluation - transformation zone component present GENERAL CATEGORIZATION ? Negative for Intraepithelial Lesion or Malignancy ? Document reviewed and electronically signed by: ? MERYL Wolf(ASCP) ? Report Date: ??05/26/2002 14:16 End of Report NELI GRIMM 05/21/2002 05/25/2002 us Penny Tariq BILINGUAL TRAINER PATHOLOGY ORDERABLES Final R esult [facility] [address] [place] [address] documented in this encounter Visit Diagnoses Not on filedocumented in this encounter
--- OUTSIDE RECORDS SUMMARY | 2024-04-12 12:23 | XMS_ITS | Encounter Summary ---
Author Organization [facility] Address [address] [place] [address] Care Team Providers Care Collaborative Physician Name Role Phone Unavailable Primary Care Provider Unavailabl e Encounter Details Date Type Department Care Team (Late st Contact Info) Description 10/27/2000 Results Only [facility] - Maple conversion [address] [place] [address] Earnest Duran, DO [address] [facility] [address] [place] [phone] Social History Tobacco Use Types Packs/Day Years [...] ? NUVIA SALDIVAR ? Accession #: ? [id number] ? : ? 1970 (Age: 30) ??F [...] ORDERABLES Fi nal Result [facility] [address] [place] [address] documented in this encounter Visit Diagnoses Not on filedocumented in this encounter
--- OUTSIDE RECORDS SUMMARY | 2024-04-12 12:23 | XMS_ITS | Encounter Summary ---
Author Organization [facility] Address [address] [place] [address] Care Team Providers Care Manual Arts Teacher Name Role Phone Snow Moncada NP Primary Care Provider [phone] Encounter Details Date Type Department Care Team (Latest Contact Info) Description 08/21/2015 12:44 EDT - 08/21/2015 23:59 EDT Hospital Encounter [address] [address] Unknown, Provider, MD Discharge Disposition: Home or [...] Code Departure Means Destination Home or Self Snf documented in this encounter Plan of Treatment Not on file documented as of this encounter Visit Diagnoses Not on filedocumented in this encounter Care Teams Manual Arts Teacher Relationship Specialty Start Date End Date Snow Moncada NP [address] [place] [address] PCP - General 03/10/15 12/02/23 documented as of this encounter
--- OUTSIDE RECORDS SUMMARY | 2024-04-12 12:23 | XMS_ITS | Encounter Summary ---
Author Organization [facility] Address [address] [place] [address] Care Team Providers Care Animal Husbandry Teacher Name Role Phone Snow Moncada NP Primary Care Provider [phone] Encounter Details Date Type Department Care Team (Late st Contact Info) Description 12/02/2023 Orders Only [facility] [address] [address] Smiley Don, RN [address] [place] [address] Immunity status testing (Primary Dx); Screening examination [...] See Note 12/04/2023 10:19 EDT [facility] Comment:Presence of detectab le Varicella Zoster virus IgG antibodies. Blood VENOUS BLOOD / Unknown Venipuncture / Unknown 12/03/2023 14:27 EDT 12/03/2023 14:28 EDT Jacoby Sanchez MD IMMUNOLOGY AND SEROLOGY ORDERABLES Final Result [facility] [address] [place] [address] * RUBELLA IGG ANTIBODY (12/03/2023 14:27 EDT) Rubella IgG Ab Positive See Note 12/04/2023 10:23 EDT [facility] Comment:Positive for IgG ant ibodies to Rubella virus. Blood VENOUS BLOOD / Unknown Venipuncture / Unknown 12/03/2023 14:27 EDT 12/03/2023 14:28 EDT us Jacoby Sanchez MD CHEMISTRY & BLOOD GAS O RDERABLES Final Result [facility] [address] [place] [address] * MUMPS ANTIBODY IGG (12/03/2023 14:27 EDT) Mumps Antibody IgG Positive See Note 12/04/2023 10:23 EDT [facility] Comment:Presence of detectab le mumps virus IgG antibodies. Blood VENOUS BLOOD / Unknown Venipuncture / Unknown 12/03/2023 14:27 EDT 12/03/2023 14:28 EDT us Jacoby Sanchez MD IMMUNOLOGY AND SEROLOGY ORDERABLES Final Result [facility] [address] [place] [address] * MEASLES IGG AB (12/03/2023 14:27 EDT) Measles IgG Ab Positive See Note 12/04/2023 10:21 EDT [facility] Comment:Presence of detectab le measles virus IgG antibodies. Blood VENOUS BLOOD / Unknown Venipuncture / Unknown 12/03/2023 14:27 EDT 12/03/2023 14:28 EDT us Jacoby Sanchez MD IMMUNOLOGY AND SEROLOGY ORDERABLES Final Result Performing Organization Address City/[facility]/ZIP Co de Phone Number [facility] [address] [place], [place] [phone] * HEPATITIS B SURFACE ANTIBODY (12/03/2023 14:27 EDT) Hep B Surface Ab, Quantitative >1,000.0 See Note mIU/mL 12/04/2023 9:28 EDT [facility] Comment: Reference Range for Hep B Surface Ab, Quant: Positive: >= 10.0 mIU/mL Negative: ??< 10.0 mIU/mL Patient is presumed to be immune to infection with Hepatitis B Virus. Hep B Surface Ab, Qualitative Positive See Note 12/04/2023 9:28 EDT [facility] Comment: Reference Range for Hep B Surface Ab, Qual: Unvaccinated: ??Negative Vaccinated: ??Positive Blood VENOUS BLOOD / Unknown Venipuncture / Unknown 12/03/2023 14:27 EDT 12/03/2023 14:28 EDT us Jacoby Sanchez MD CHEMISTRY & BLOOD GAS O RDERABLES Final Result Performing Organization Address [facility] Co de Phone Number [facility] [address] [place], [place] [address] documented in this encounter Visit Diagnoses Diagnosis Immunity status testing- Primary Antibody response examination Screening examination for pulmonary tuberculosis documented in this encounter Care Teams Animal Husbandry Teacher Relationship Specialty Start Date End Date Snow Moncada, VALERY [address] [place] [address] PCP - General 03/10/15 12/02/23 documented as of this encounter
--- OUTSIDE RECORDS SUMMARY | 2024-04-12 12:23 | XMS_ITS | Encounter Summary ---
Author Organization [facility] Address [address] [place] [address] Care Team Providers Care Strategic Marketing Specialist Name Role Phone Unknown, Provider Primary Care Provider Unava ilable Encounter Details Date Type Department Care Team (Late st Contact Info) Description 12/03/2023 14:30 EDT Phlebotomy Only [facility] Laboratory Services - [address] [address] [facility] Immunity status testing; Screening examination for [...] Quantiferon Interpretation Negative Negative 12/04/2023 13:44 EDT [facility] Comment:No interferon-gamma response to M. tuberculosis antigens was detected. ??Infection with M. tuberculosis is unlikely. A single negative result does not exclude infection with M. tuberculosis. ??In patients at high risk for M. tuberculosis infection, a second test should be considered. TB1 Ag minus Nil 0.07 IU/ml 12/04/19 13:44 EDT [facility] TB2 Ag minus Nil 0.07 IU/mL 12/04/19 13:44 EDT [facility] Blood VENOUS BLOOD / Unknown Venipuncture / Unknown 12/03/2023 14:27 EDT 12/04/2023 13:15 EDT us Jacoby Sanchez MD IMMUNOLOGY AND SEROLOGY ORDERABLES Final Result [facility] [address] [place] [address] * QUANTIFERON MITOGEN (PERFORMABLE) (12/03/2023 14:27 EDT) Blood VENOUS BLOOD / Unknown Venipuncture / Unknown 12/03/2023 14:27 EDT 12/03/2023 14:28 EDT us Jacoby Sanchez MD IMMUNOLOGY AND SEROLOGY ORDERABLES Final Result Performing Organization Address City/[facility]/ZIP Co de Phone Number [facility] [address] [place], [place] [phone] * QUANTIFERON TB2 (PERFORMABLE) (12/03/2023 14:27 EDT) Blood VENOUS BLOOD / Unknown Venipuncture / Unknown 12/03/2023 14:27 EDT 12/03/2023 14:28 EDT Jacoby Sanchez MD IMMUNOLOGY AND SEROLOGY ORDERABLES Final Result Performing Organization Address [facility] [[email or web address]] Co de Phone Number [facility] [address] [place] [phone] * QUANTIFERON TB1 (PERFORMABLE) (12/03/2023 14:27 EDT) Blood VENOUS BLOOD / Unknown Venipuncture / Unknown 12/03/2023 14:27 EDT 12/03/2023 14:28 EDT Jacoby Sanchez MD IMMUNOLOGY AND SEROLOGY ORDERABLES Final Result Performing Organization Address [facility] [[email or web address]] Co de Phone Number [facility] [address] [place] [phone] * QUANTIFERON NIL (PERFORMABLE) (12/03/2023 14:27 EDT) Blood VENOUS BLOOD / Unknown Venipuncture / Unknown 12/03/2023 14:27 EDT 12/03/2023 14:28 EDT us Jacoby Sanchez MD IMMUNOLOGY AND SEROLOGY ORDERABLES Final Result Performing Organization Address [facility] [[email or web address]] Co de Phone Number [facility] [address] [place] [phone] * VARICELLA IGG ANTIBODY (12/03/2023 14:27 EDT) Varicella IgG Ab Positive See Note 12/04/2023 10:19 EDT [facility] Comment:Presence of detectab le Varicella Zoster virus IgG antibodies. Blood VENOUS BLOOD / Unknown Venipuncture / Unknown 12/03/2023 14:27 EDT 12/03/2023 14:28 EDT us Jacoby Sanchez MD IMMUNOLOGY AND SEROLOGY ORDERABLES Final Result [facility] [address] [place] [address] * RUBELLA IGG ANTIBODY (12/03/2023 14:27 EDT) Rubella IgG Ab Positive See Note 12/04/2023 10:23 EDT [facility] Comment:Positive for IgG ant ibodies to Rubella virus. Blood VENOUS BLOOD / Unknown Venipuncture / Unknown 12/03/2023 14:27 EDT 12/03/2023 14:28 EDT us Jacoby Sanchez MD CHEMISTRY & BLOOD GAS O RDERABLES Final Result Performing Organization Address [facility] [[email or web address]] Co de Phone Number [facility] [address] [place] [address] * MUMPS ANTIBODY IGG (12/03/2023 14:27 EDT) Mumps Antibody IgG Positive See Note 12/04/2023 10:23 EDT [facility] Comment:Presence of detectab le mumps virus IgG antibodies. Blood VENOUS BLOOD / Unknown Venipuncture / Unknown 12/03/2023 14:27 EDT 12/03/2023 14:28 EDT us Jacoby Sanchez MD IMMUNOLOGY AND SEROLOGY ORDERABLES Final Result Performing Organization Address City/[facility]/ZIP Co de Phone Number [facility] [address] [place] [address] * MEASLES IGG AB (12/03/2023 14:27 EDT) Measles IgG Ab Positive See Note 12/04/2023 10:21 EDT [facility] Comment:Presence of detectab le measles virus IgG antibodies. Blood VENOUS BLOOD / Unknown Venipuncture / Unknown 12/03/2023 14:27 EDT 12/03/2023 14:28 EDT Jacoby Sanchez MD IMMUNOLOGY AND SEROLOGY ORDERABLES Final Result Performing Organization Address City/[facility] [[email or web address]] Co de Phone Number [facility] [address] [place] [address] * HEPATITIS B SURFACE ANTIBODY (12/03/2023 14:27 EDT) Hep B Surface Ab, Quantitative >1,000.0 See Note mIU/mL 12/04/2023 9:28 EDT [facility] Comment: Reference Range for Hep B Surface Ab, Quant: Positive: >= 10.0 mIU/mL Negative: ??< 10.0 mIU/mL Patient is presumed to be immune to infection with Hepatitis B Virus. Hep B Surface Ab, Qualitative Positive See Note 12/04/2023 9:28 EDT [facility] Comment: Reference Range for Hep B Surface Ab, Qual: Unvaccinated: ??Negative Vaccinated: ??Positive Blood VENOUS BLOOD / Unknown Venipuncture / Unknown 12/03/2023 14:27 EDT 12/03/2023 14:28 EDT Jacoby Sanchez MD CHEMISTRY & BLOOD GAS O RDERABLES Final Result Performing Organization Address [facility]/ZIP Co de Phone Number [facility] [address] [place] [phone] documented in this encounter Visit Diagnoses Diagnosis Immunity status testing Antibody response examination Screening examination for pulmonary tuberculosis documented in this encounter Care Teams Strategic Marketing Specialist Relationship Specialty Start Date End Date Unknown, Provider, PCP - General 12/03/23 documented as of this encounter
--- OUTSIDE RECORDS SUMMARY | 2024-04-12 12:23 | XMS_ITS | Referral Summary ---
Author Organization [facility] Address [address] [place] [address] Care Team Providers Care Geriatric Assistant Name Role Phone Unknown, Provider Primary Care Provider Unava ilable Social History Tobacco Use Types Packs/Day Years Used Date Smoking Tobacco: Never Assessed Comments Unknown Sex and Gender Information Value Date Recorded Sex Assigned at Not on file Legal Sex Female 18:07 EST Gender Identity Female 12/03/2023 14:17 EDT Sexual Orientation Not on file Plan of Treatment Not on file Care Teams Geriatric Assistant Relationship Specialty Start Date End Date Unknown, Provider, PCP - General 12/03/23
--- OUTSIDE RECORDS SUMMARY | 2024-04-12 12:23 | XMS_ITS | Clinical Summary ---
Author Organization [facility] Address [address] [place] [address] Care Team Providers Care Production Control Analyst Name Role Phone Unknown, Provider MD Primary [...] COVID-19 Vaccine ( season) 2023 Care Teams Production Control Analyst Relationship Specialty Start Date End Date Unknown, Provider, PCP - General 12/03/23
--- OUTSIDE RECORDS SUMMARY | 2024-04-12 12:23 | XMS_ITS | Encounter Summary ---
Author Organization [facility] Address [address] [place] [address] Care Team Providers Care Shirrer Name Role Phone Unavailable Primary Care Provider Unavailabl e Encounter Details Date Type Department Care Team (Late st Contact Info) Description 01/05/2007 Results Only [facility] - Maple conversion [address] [place] [address] Snow Coats, LIBRARY CUSTOMER SERVICE CLERK [facility] [address] [place] [address] Social History Tobacco Use Types [...] ? NUVIA SALDIVAR ? Accession #: ? [id number] : ? 1970 (Age: 36) ??F ?Collect Date: ? 01/05/2007 Location: ? [facility] ? Receive Date: ? 01/06/2007 Provider: ?SNOW COATS LIBRARY CUSTOMER SERVICE CLERK Copy to: ? Specimen/Source: ?ThinPrep Pap Test, Cervix/Endocervix, processed on [employer] ThinPrep Imaging System, with manual evaluation Last [...] ORDERABLES Final Result [facility] [address] [place] [address] documented in this encounter Visit Diagnoses Not on filedocumented in this encounter
--- OUTSIDE RECORDS SUMMARY | 2024-04-12 12:23 | XMS_ITS | Encounter Summary ---
Author Organization [facility] Address [address] [place] [address] Care Team Providers Care Senior Information Developer Name Role Phone Unavailable Primary Care Provider Unavailabl e Encounter Details Date Type Department Care Team (Late st Contact Info) Description 12/11/2004 Results Only [facility] - Maple conversion [address] [place] [address] Penny Tariq, [facility] [address] [place] [address] [place] [address] Social History Tobacco Use Types [...] ? NUVIA SALDIVAR ? Accession #: ? [id number] : ? 1970 (Age: 34) ??F ?Collect Date: ? 12/11/2004 Location: ? [facility] ? Receive Date: ? 12/12/2004 Provider: ?PENNY TARIQ CITY DISTRIBUTION CLERK Copy to: ? Specimen/Source: ?ThinPrep Pap Test, Cervix/Endocervix, processed on [employer] ThinPrep Imaging System, with manual evaluation Last [...] NELI GRIMM 12/11/2004 12/12/2004 us Penny Tariq CITY DISTRIBUTION CLERK PATHOLOGY ORDERABLES Final R esult [facility] [address] [place] [address] documented in this encounter Visit Diagnoses Not on filedocumented in this encounter
--- OUTSIDE RECORDS SUMMARY | 2024-04-12 12:23 | XMS_ITS | Encounter Summary ---
Author Organization [facility] Address [address] [place] [address] Care Team Providers Care Straw Hat Washer Operator Name Role Phone Snow Moncada NP Primary Care Provider [phone] Encounter Details Date Type Department Care Team (Late st Contact Info) Description 08/21/2015 Historical Results Only [facility] Radiology Results [address] [place], [place] [address] Laura Ernst PA-C [address] [facility] [address] [place], [place] [address] Social History Tobacco Use Types Packs/Day Years [...] RADIOLOGY EXPRESS CARE/EXP CARE XR ??EX. D/ (4226) ? CLINICAL INFORMATION: ? PAIN IN RIGHT [...] CC: ? Transcribed Date/Time: 08/21/2015 (1611) ? Primer Charger: ? Printed Date/Time: 10/08/2018 (0937) ? PAGE 1 ? Signed Report ? Procedure Note Benito Cortez MD - 03/03/2019 EXAM: RADIOLOGY EXPRESS CARE/EXP CARE XR EX. D/ (4286) CLINICAL INFORMATION: PAIN IN RIGHT FOOT - [...] Cortez MD CC: Transcribed Date/Time: 08/21/2015 (1611) Primer Charger: Printed Date/Time: 10/08/2018 (3752) PAGE 1 Signed Report Laura Ernst PA-C [...] MD ? CC: ? Transcribed Date/Time: 08/21/2015 (9120) ? Primer Charger: ? Printed Date/Time: 10/08/2018 (0937) ? PAGE [...] Benito Cortez MD CC: Transcribed Date/Time: 08/21/2015 (0620) Primer Charger: [email or web address] Printed Date/Time: 10/08/2018 (9274) PAGE 1 Signed Report Laura Ernst PA-C IMG DIAGNOSTIC IMAGING ORDERA BLES Final Result documented in this encounter Visit Diagnoses Not on filedocumented in this encounter Care Teams Straw Hat Washer Operator Relationship Specialty Start Date End Date Snow Moncada NP [address] [place] [address] PCP - General 03/10/15 12/02/23 documented as of this encounter
--- OUTSIDE RECORDS SUMMARY | 2024-04-12 12:23 | XMS_ITS | Encounter Summary ---
Author Organization [facility] Address [address] [place] [address] Care Team Providers Care City Council Member Name Role Phone Unavailable Primary Care Provider Unavailabl e Encounter Details Date Type Department Care Team (Late st Contact Info) Description 10/24/2005 Results Only [facility] - Maple conversion [address] [place] [address] Snow Coats, AIR CONDITIONER INSTALLER HELPER [facility] [address] [place] [address] Social History Tobacco Use Types [...] ? NUVIA SALDIVAR ? Accession #: ? [id number] : ? 1970 (Age: 35) ??F ?Collect Date: ? 10/24/2005 Location: ? [facility] ? Receive Date: ? 10/25/2005 Provider: ?SNOW COATS AIR CONDITIONER INSTALLER HELPER Copy to: ? Specimen/Source: ?ThinPrep Pap Test, Cervix, processed on [place] LabsPrep Imaging System, with manual evaluation Last Menstrual [...] ORDERABLES Final Result [facility] [address] [place] [address] documented in this encounter Visit Diagnoses Not on filedocumented in this encounter
--- OUTSIDE RECORDS SUMMARY | 2024-04-12 12:23 | XMS_ITS | Encounter Summary ---
Author Organization [facility] Address [address] [place] [address] Care Team Providers Care Gaming Worker Name Role Phone Unavailable Primary Care Provider Unavailabl e Encounter Details Date Type Department Care Team ([facility] st Contact Info) Description 07/17/2004 8:55 EST Hospital Encounter [address] [address] Rachelle Hale MD [address] [place] [address] Social History Tobacco Use Types Packs/Day Years [...] ORDERAB LES Final Result Performing Organization Address City/[facility] Co de Phone Number [facility] [address] [place] [address] * LITHIUM (07/17/2004 9:00 EST) [place] 0.6 0.6 - 1.2 mEq/L [facility] 07/17/2004 9:00 EST 07/17/2004 9:20 EST us Rachelle Hale MD CHEMISTRY & BLOOD GAS ORDERAB LES Final Result Performing Organization Address [facility] de Phone Number [facility] [address] [place] [address] * CREATININE (07/17/2004 9:00 EST) Creatinine 1.0 0.7 - 1.5 mg/dl [facility] 07/17/2004 9:00 EST 07/17/2004 9:20 EST us Rachelle Hale MD HISTORICAL LAB FOR SQ LOAD Fi nal Result Performing Organization Address [facility] de Phone Number [facility] [address] [place] [address] * CO2 (07/17/2004 9:00 EST) CO2 28 24 - 32 mEq/L [facility] 07/17/2004 9:00 EST 07/17/2004 9:20 EST us Rachelle Hale MD CHEMISTRY & BLOOD GAS ORDERAB LES Final Result Performing Organization Address [facility] Co de Phone Number [facility] [address] [place] [address] * BUN (07/17/2004 9:00 EST) BUN 15 10 - 26 mg/dl [facility] 07/17/2004 9:00 EST 07/17/2004 9:20 EST us Rachelle Hale MD CHEMISTRY & BLOOD GAS ORDERAB LES Final Result [facility] [address] [place] [address] documented in this encounter Visit Diagnoses Not on filedocumented in this encounter
[2024-04-12 15:02] LABS: HCT 40.3 % (36.0-46.0); HGB 13.4 g/dL (11.2-15.7); MCH 32.2 pg (27.0-33.0); MCHC 33.3 % (32.0-36.0); MCV 97 fL (80-95); MPV 10.7 fL (8.0-11.0); Platelet Count 205 10^3/uL (130-400); RBC 4.16 10^6/uL (3.93-5.22); RDW 13.2 % (11.7-14.6); RDW-SD 47.1 fL; WBC 2.96 10^3/uL (4.4-10.8)
[2024-04-12 15:48] LABS: Iron 82 ug/dL (50-170); Total Iron Binding Capacity 341 ug/dL (250-450); Transferrin Sat 24 % (15-50)
[2024-04-12 16:23] LABS: ALT 37 U/L (14-59); AST 66 U/L (15-37); Albumin 3.8 g/dL (3.4-5.0); Alkaline Phosphatase 161 U/L (46-116); Anion Gap 8.2 mmol/L (3-11); BUN 8 mg/dL (7-18); Bilirubin, Total 0.96 mg/dL (0.2-1.0); CO2 29.8 mmol/L (21.0-32.0); CREATININE 0.7 mg/dL (0.55-1.02); Calcium 9.5 mg/dL (8.5-10.1); Calculated LDL 22 mg/dL (<100); Chloride 103 mmol/L (98-107); Cholesterol 186 mg/dL (<200); Estimated GFR 102.07 (mL/min/1.73m2); Ferritin 153 ng/mL (8-252); Glucose 126 mg/dL (74-106); HDL Cholesterol 158 mg/dL (40-60); Potassium 4.2 mmol/L (3.5-5.1); Sodium 141 mmol/L (136-145); Total Protein 6.8 g/dL (6.4-8.2); Triglyceride 31 mg/dL (<150); Vitamin B12 289 pg/mL (193-986)
== END 2024-04-12 12:21 | disposition home or self-care (01) ==
LOC: NCHCN 12:20
PROVIDERS: PCP Nurse Practitioner Family; Visit Provider Family Medicine
DX: E78.5 Hyperlipidemia, unspecified (principal); K92.1 Melena; E72.12 Methylenetetrahydrofolate reductase deficiency
CPT/HCPCS: 80053; 80061; 85027; 82607; 82728; 83540; 83550; 83735

== ENCOUNTER 2024-05-26 10:29 | Outpatient (REF) | payer BC, SELFPAY ==
--- OUTSIDE RECORDS SUMMARY | 2024-05-26 10:35 | XMS_ITS | Referral Summary ---
Author Organization [facility] Address [address] [place] [address] Care Team Providers Care Community Service Patrol Officer Name Role Phone Unknown, Provider Primary Care Provider Unava ilable Social History Tobacco Use Types Packs/Day Years Used Date Smoking Tobacco: Never Assessed Comments Unknown Sex and Gender Information Value Date Recorded Sex Assigned at Not on file Legal Sex Female 18:07 EST Gender Identity Female 12/03/2023 14:17 EDT Sexual Orientation Not on file Plan of Treatment Not on file Care Teams Community Service Patrol Officer Relationship Specialty Start Date End Date Unknown, Provider, PCP - General 12/03/23
--- OUTSIDE RECORDS SUMMARY | 2024-05-26 10:35 | XMS_ITS | Clinical Summary ---
Author Organization [facility] Address [address] [place] [address] Care Team Providers Care Footwear Sales Leader Name Role Phone Unknown, Provider MD Primary [...] COVID-19 Vaccine ( season) 2023 Care Teams Footwear Sales Leader Relationship Specialty Start Date End Date Unknown, Provider, PCP - General 12/03/23
--- OUTSIDE RECORDS SUMMARY | 2024-05-26 10:36 | XMS_ITS | Encounter Summary ---
Author Organization [facility] Address [address] [place] [address] Care Team Providers Care Lab Engineer Name Role Phone Unavailable Primary Care Provider Unavailabl e Encounter Details Date Type Department Care Team (Late st Contact Info) Description 05/14/2010 Results Only [facility] - [facility] ([facility] [address] [place] [address] Rosa Morris PA Social History Tobacco [...] ? NUVIA SALDIVAR ? Accession #: ? [id number] ? : ? 1970 (Age: 40) ??F [...] reviewed and electronically signed by: ? Shannon [place], [place](ASCP) ? Report ??Date: 05/17/2010 14:56 ? [...] PATHOLOGY ORDERABLES Final Resul t [facility] [address] [place] [address] documented in this encounter Visit Diagnoses Not on filedocumented in this encounter
--- OUTSIDE RECORDS SUMMARY | 2024-05-26 10:36 | XMS_ITS | Encounter Summary ---
Author Organization [facility] Address [address] [place] [address] Care Team Providers Care Administrative Tech Name Role Phone Snow Moncada NP Primary Care Provider [phone] Encounter Details Date Type Department Care Team (Latest Contact Info) Description 08/21/2015 12:44 EDT - 08/21/2015 23:59 EDT Hospital Encounter [address] [address] Unknown, Provider, MD Discharge Disposition: Home or [...] Code Departure Means Destination Home or Self Alf documented in this encounter Plan of Treatment Not on file documented as of this encounter Visit Diagnoses Not on filedocumented in this encounter Care Teams Administrative Tech Relationship Specialty Start Date End Date Snow Moncada NP [address] [place] [address] PCP - General 03/10/15 12/02/23 documented as of this encounter
--- OUTSIDE RECORDS SUMMARY | 2024-05-26 10:36 | XMS_ITS | Encounter Summary ---
Author Organization [facility] Address [address] [place] [address] Care Team Providers Care Marshmallow Runner Name Role Phone Unavailable Primary Care Provider Unavailabl e Encounter Details Date Type Department Care Team (Late st Contact Info) Description 07/04/2008 Before PRISM Converted Visit (Maple) [facility] - Maple conversion [address] [place] [address] Rosa Morris PA Social History Tobacco Use [...] S Final Result [facility] [address] [place] [address] * CYTOPATHOLOGY (07/04/2008 0:00 EDT) Pathology Report: CYTOPATHOLOGY REPORT ? Reports generated via electronic interface contain original data; ? however they are lacking the format of the original report. ? Caution should be taken when reading/interpreti ng unformatted reports. ? Name: ? NUVIA SALDIVAR ? Accession #: ? [id number] ? : ? 1970 (Age: 38) ??F [...] Final Resul t [facility] [address] [place] [address] documented in this encounter Visit Diagnoses Not on filedocumented in this encounter
--- OUTSIDE RECORDS SUMMARY | 2024-05-26 10:36 | XMS_ITS | Encounter Summary ---
Author Organization [facility] Address [address] [place] [address] Care Team Providers Care Senior Sql Server Developer Name Role Phone Unavailable Primary Care Provider Unavailabl e Encounter Details Date Type Department Care Team (Late st Contact Info) Description 01/05/2007 Results Only [facility] - Maple conversion [address] [place] [address] Snow Coats, TABLET REPAIR [facility] [address] [place] [address] Social History Tobacco Use Types [...] ? NUVIA SALDIVAR ? Accession #: ? [id number] : ? 1970 (Age: 36) ??F ?Collect Date: ? 01/05/2007 Location: ? [facility] ? Receive Date: ? 01/06/2007 Provider: ?SNOW COATS TABLET REPAIR Copy to: ? Specimen/Source: ?ThinPrep Pap Test, Cervix/Endocervix, processed on [employer] ThinPrep Imaging System, with manual evaluation Last [...] ORDERABLES Final Result [facility] [address] [place] [address] documented in this encounter Visit Diagnoses Not on filedocumented in this encounter
--- OUTSIDE RECORDS SUMMARY | 2024-05-26 10:36 | XMS_ITS | Encounter Summary ---
Author Organization [facility] Address [address] [place] [address] Care Team Providers Care Quality Management Nurse Name Role Phone Unavailable Primary Care Provider Unavailabl e Encounter Details Date Type Department Care Team ([facility] st Contact Info) Description 07/17/2004 8:55 EST Hospital Encounter [address] [address] Rachelle Hale MD [address] [place] [address] Social History Tobacco Use Types Packs/Day Years [...] ORDERAB LES Final Result Performing Organization Address City/[facility] Co de Phone Number [facility] [address] [place] [address] * LITHIUM (07/17/2004 9:00 EST) [place] 0.6 0.6 - 1.2 mEq/L [facility] 07/17/2004 9:00 EST 07/17/2004 9:20 EST us Rachelle Hale MD CHEMISTRY & BLOOD GAS ORDERAB LES Final Result Performing Organization Address [facility] de Phone Number [facility] [address] [place] [address] * CREATININE (07/17/2004 9:00 EST) Creatinine 1.0 0.7 - 1.5 mg/dl [facility] 07/17/2004 9:00 EST 07/17/2004 9:20 EST us Rachelle Hale MD HISTORICAL LAB FOR SQ LOAD Fi nal Result Performing Organization Address [facility] de Phone Number [facility] [address] [place] [address] * CO2 (07/17/2004 9:00 EST) CO2 28 24 - 32 mEq/L [facility] 07/17/2004 9:00 EST 07/17/2004 9:20 EST us Rachelle Hale MD CHEMISTRY & BLOOD GAS ORDERAB LES Final Result Performing Organization Address [facility] Co de Phone Number [facility] [address] [place] [address] * BUN (07/17/2004 9:00 EST) BUN 15 10 - 26 mg/dl [facility] 07/17/2004 9:00 EST 07/17/2004 9:20 EST us Rachelle Hale MD CHEMISTRY & BLOOD GAS ORDERAB LES Final Result [facility] [address] [place] [address] documented in this encounter Visit Diagnoses Not on filedocumented in this encounter
--- OUTSIDE RECORDS SUMMARY | 2024-05-26 10:36 | XMS_ITS | Encounter Summary ---
Author Organization [facility] Address [address] [place] [address] Care Team Providers Care Intrusion Analyst Name Role Phone Unavailable Primary Care Provider Unavailabl e Encounter Details Date Type Department Care Team (Late st Contact Info) Description 10/27/2000 Results Only [facility] - Maple conversion [address] [place] [address] Earnest Duran, DO [address] [facility] [address] [place] [id number] Social History Tobacco Use Types Packs/Day Years [...] ? NUVIA SALDIVAR ? Accession #: ? [id number] ? : ? 1970 (Age: 30) ??F [...] ORDERABLES Fi nal Result [facility] [address] [place] [address] documented in this encounter Visit Diagnoses Not on filedocumented in this encounter
--- OUTSIDE RECORDS SUMMARY | 2024-05-26 10:36 | XMS_ITS | Encounter Summary ---
Author Organization [facility] Address [address] [place] [address] Care Team Providers Care Landscape Painter Name Role Phone Unavailable Primary Care Provider Unavailabl e Encounter Details Date Type Department Care Team (Late st Contact Info) Description 05/21/2002 Results Only [facility] - Maple conversion [address] [place] [address] Penny Tariq, [facility] [address] [facility] [place] [address] Social History Tobacco Use Types [...] ? NUVIA SALDIVAR ? Accession #: ? [id number] : ? 1970 (Age: 32) ??F ?Collect Date: ? 05/21/2002 Location: ? [facility] ? Receive Date: ? 05/25/2002 Provider: ?PENNY TARIQ COMMERCIAL ESTIMATOR Copy to: ? Specimen/Source: ?ThinPrep Pap Test, Cervix/Endocervix Last Menstrual Period: ? 05/06/02 ? SPECIMEN ADEQUACY ? Satisfactory for Evaluation - transformation zone component present GENERAL CATEGORIZATION ? Negative for Intraepithelial Lesion or Malignancy ? Document reviewed and electronically signed by: ? MERYL Wolf(ASCP) ? Report Date: ??05/26/2002 14:16 End of Report [facility] 05/21/2002 05/25/2002 us Penny Tariq COMMERCIAL ESTIMATOR PATHOLOGY ORDERABLES Final R esult [facility] [address] [place] [address] documented in this encounter Visit Diagnoses Not on filedocumented in this encounter
--- OUTSIDE RECORDS SUMMARY | 2024-05-26 10:36 | XMS_ITS | Encounter Summary ---
Author Organization [facility] Address [address] [place] [address] Care Team Providers Care Diversity Manager Name Role Phone Unavailable Primary Care Provider Unavailabl e Encounter Details Date Type Department Care Team (Late st Contact Info) Description 12/11/2004 Results Only [facility] - Maple conversion [address] [place] [address] Penny Tariq, [facility] [address] [place] [address] [place] [address] Social History Tobacco Use Types [...] ? NUVIA SALDIVAR ? Accession #: ? [id number] : ? 1970 (Age: 34) ??F ?Collect Date: ? 12/11/2004 Location: ? [facility] ? Receive Date: ? 12/12/2004 Provider: ?PENNY TARIQ EARLY CHILDHOOD AIDE CLASSROOM Copy to: ? Specimen/Source: ?ThinPrep Pap Test, Cervix/Endocervix, processed on [employer] ThinPrep Imaging System, with manual evaluation Last [...] NELI GRIMM 12/11/2004 12/12/2004 us Penny Tariq EARLY CHILDHOOD AIDE CLASSROOM PATHOLOGY ORDERABLES Final R esult [facility] [address] [place] [address] documented in this encounter Visit Diagnoses Not on filedocumented in this encounter
--- OUTSIDE RECORDS SUMMARY | 2024-05-26 10:36 | XMS_ITS | Encounter Summary ---
Author Organization [facility] Address [address] [place] [address] Care Team Providers Care Digital Photographic Printer Name Role Phone Snow Moncada NP Primary Care Provider [phone] Encounter Details Date Type Department Care Team (Late st Contact Info) Description 08/21/2015 Historical Results Only [facility] Radiology Results [address] [place], [place] [address] Laura Ernst PA-C [address] [facility] [address] [place], [place] [address] Social History Tobacco Use Types Packs/Day Years [...] RADIOLOGY EXPRESS CARE/EXP CARE XR ??EX. D/ (1816) ? CLINICAL INFORMATION: ? PAIN IN RIGHT [...] CC: ? Transcribed Date/Time: 08/21/2015 (1611) ? Compliance Analyst: ? Printed Date/Time: 10/08/2018 (0937) ? PAGE 1 ? Signed Report ? Procedure Note Benito Cortez MD - 03/03/2019 EXAM: RADIOLOGY EXPRESS CARE/EXP CARE XR EX. D/ (3896) CLINICAL INFORMATION: PAIN IN RIGHT FOOT - [...] Cortez MD CC: Transcribed Date/Time: 08/21/2015 (1611) Compliance Analyst: Printed Date/Time: 10/08/2018 (4066) PAGE 1 Signed Report Laura Ernst PA-C [...] MD ? CC: ? Transcribed Date/Time: 08/21/2015 (1190) ? Compliance Analyst: ? Printed Date/Time: 10/08/2018 (0937) ? PAGE [...] Benito Cortez MD CC: Transcribed Date/Time: 08/21/2015 (5790) Compliance Analyst: [email or web address] Printed Date/Time: 10/08/2018 (6680) PAGE 1 Signed Report Laura Ernst PA-C IMG DIAGNOSTIC IMAGING ORDERA BLES Final Result documented in this encounter Visit Diagnoses Not on filedocumented in this encounter Care Teams Digital Photographic Printer Relationship Specialty Start Date End Date Snow Moncada NP [address] [place] [address] PCP - General 03/10/15 12/02/23 documented as of this encounter
--- OUTSIDE RECORDS SUMMARY | 2024-05-26 10:36 | XMS_ITS | Encounter Summary ---
Author Organization [facility] Address [address] [place] [address] Care Team Providers Care Sql Report Developer Name Role Phone Snow Moncada NP Primary Care Provider [phone] Encounter Details Date Type Department Care Team (Late st Contact Info) Description 12/02/2023 Orders Only [facility] - [address] [address] Smiley Don, RN [address] [place] [address] Immunity status testing (Primary Dx); Screening examination [...] Ab Positive See Note 12/04/2023 10:19 EDT [facility] Comment:Presence of detectab le Varicella Zoster virus IgG antibodies. Blood VENOUS BLOOD / Unknown Venipuncture / Unknown 12/03/2023 14:27 EDT 12/03/2023 14:28 EDT Jacoby Sanchez MD IMMUNOLOGY AND SEROLOGY ORDERABLES Final Result [facility] [address] [place] [address] * RUBELLA IGG ANTIBODY (12/03/2023 14:27 EDT) Rubella IgG Ab Positive See Note 12/04/2023 10:23 EDT [facility] Comment:Positive for IgG ant ibodies to Rubella virus. Blood VENOUS BLOOD / Unknown Venipuncture / Unknown 12/03/2023 14:27 EDT 12/03/2023 14:28 EDT us Jacoby Sanchez MD CHEMISTRY & BLOOD GAS O RDERABLES Final Result [facility] [address] [place] [address] * MUMPS ANTIBODY IGG (12/03/2023 14:27 EDT) Mumps Antibody IgG Positive See Note 12/04/2023 10:23 EDT [facility] Comment:Presence of detectab le mumps virus IgG antibodies. Blood VENOUS BLOOD / Unknown Venipuncture / Unknown 12/03/2023 14:27 EDT 12/03/2023 14:28 EDT us Jacoby Sanchez MD IMMUNOLOGY AND SEROLOGY ORDERABLES Final Result [facility] [address] [place] [address] * MEASLES IGG AB (12/03/2023 14:27 EDT) Measles IgG Ab Positive See Note 12/04/2023 10:21 EDT [facility] Comment:Presence of detectab le measles virus IgG antibodies. Blood VENOUS BLOOD / Unknown Venipuncture / Unknown 12/03/2023 14:27 EDT 12/03/2023 14:28 EDT us Jacoby Sanchez MD IMMUNOLOGY AND SEROLOGY ORDERABLES Final Result Performing Organization Address City/[facility]/ZIP Co de Phone Number [facility] [address] [place], [place] [id number] * HEPATITIS B SURFACE ANTIBODY (12/03/2023 14:27 EDT) Hep B Surface Ab, Quantitative >1,000.0 See Note mIU/mL 12/04/2023 9:28 EDT [facility] Comment: Reference Range for Hep B Surface Ab, Quant: Positive: >= 10.0 mIU/mL Negative: ??< 10.0 mIU/mL Patient is presumed to be immune to infection with Hepatitis B Virus. Hep B Surface Ab, Qualitative Positive See Note 12/04/2023 9:28 EDT [facility] Comment: Reference Range for Hep B Surface Ab, Qual: Unvaccinated: ??Negative Vaccinated: ??Positive Blood VENOUS BLOOD / Unknown Venipuncture / Unknown 12/03/2023 14:27 EDT 12/03/2023 14:28 EDT us Jacoby Sanchez MD CHEMISTRY & BLOOD GAS O RDERABLES Final Result Performing Organization Address [facility] Co de Phone Number [facility] [address] [place], [place] [address] documented in this encounter Visit Diagnoses Diagnosis Immunity status testing- Primary Antibody response examination Screening examination for pulmonary tuberculosis documented in this encounter Care Teams Sql Report Developer Relationship Specialty Start Date End Date Snow Moncada, VALERY [address] [place] [address] PCP - General 03/10/15 12/02/23 documented as of this encounter
--- OUTSIDE RECORDS SUMMARY | 2024-05-26 10:36 | XMS_ITS | Encounter Summary ---
Author Organization [facility] Address [address] [place] [address] Care Team Providers Care Housing Case Manager Name Role Phone Unavailable Primary Care Provider Unavailabl e Encounter Details Date Type Department Care Team (Late st Contact Info) Description 10/24/2005 Results Only [facility] [address] [place] [address] Snow Coats, WALNUT DEHYDRATOR OPERATOR [facility] [address] [place] [address] Social History Tobacco Use Types [...] ? NUVIA SALDIVAR ? Accession #: ? [id number] : ? 1970 (Age: 35) ??F ?Collect Date: ? 10/24/2005 Location: ? [facility] ? Receive Date: ? 10/25/2005 Provider: ?SNOW COATS WALNUT DEHYDRATOR OPERATOR Copy to: ? Specimen/Source: ?ThinPrep Pap Test, Cervix, processed on IterablePrep Imaging System, with manual evaluation Last Menstrual [...] ORDERABLES Final Result [facility] [address] [place] [address] documented in this encounter Visit Diagnoses Not on filedocumented in this encounter
--- OUTSIDE RECORDS SUMMARY | 2024-05-26 10:36 | XMS_ITS | Encounter Summary ---
Author Organization [facility] Address [address] [place] [address] Care Team Providers Care Salvage Cutter Name Role Phone Unknown, Provider Primary Care Provider Unava ilable Encounter Details Date Type Department Care Team (Late st Contact Info) Description 12/03/2023 14:30 EDT Phlebotomy Only [facility] - [address] [address] [facility] Immunity status testing; Screening examination for [...] Quantiferon Interpretation Negative Negative 12/04/2023 13:44 EDT [facility] Comment:No interferon-gamma response to M. tuberculosis antigens was detected. ??Infection with M. tuberculosis is unlikely. A single negative result does not exclude infection with M. tuberculosis. ??In patients at high risk for M. tuberculosis infection, a second test should be considered. TB1 Ag minus Nil 0.07 IU/ml 12/04/19 13:44 EDT [facility] TB2 Ag minus Nil 0.07 IU/mL 12/04/19 13:44 EDT [facility] Blood VENOUS BLOOD / Unknown Venipuncture / Unknown 12/03/2023 14:27 EDT 12/04/2023 13:15 EDT us Jacoby Sanchez MD IMMUNOLOGY AND SEROLOGY ORDERABLES Final Result [facility] [address] [place] [address] * QUANTIFERON MITOGEN (PERFORMABLE) (12/03/2023 14:27 EDT) Blood VENOUS BLOOD / Unknown Venipuncture / Unknown 12/03/2023 14:27 EDT 12/03/2023 14:28 EDT us Jacoby Sanchez MD IMMUNOLOGY AND SEROLOGY ORDERABLES Final Result Performing Organization Address City/[facility]/ZIP Co de Phone Number [facility] [address], [place] [phone] * QUANTIFERON TB2 (PERFORMABLE) (12/03/2023 14:27 EDT) Blood VENOUS BLOOD / Unknown Venipuncture / Unknown 12/03/2023 14:27 EDT 12/03/2023 14:28 EDT Jacoby Sanchez MD IMMUNOLOGY AND SEROLOGY ORDERABLES Final Result Performing Organization Address [facility] Co de Phone Number [facility] [address] [place] [phone] * QUANTIFERON TB1 (PERFORMABLE) (12/03/2023 14:27 EDT) Blood VENOUS BLOOD / Unknown Venipuncture / Unknown 12/03/2023 14:27 EDT 12/03/2023 14:28 EDT Jacoby Sanchez MD IMMUNOLOGY AND SEROLOGY ORDERABLES Final Result Performing Organization Address [facility] Co de Phone Number [facility] [address] [place] [phone] * QUANTIFERON NIL (PERFORMABLE) (12/03/2023 14:27 EDT) Blood VENOUS BLOOD / Unknown Venipuncture / Unknown 12/03/2023 14:27 EDT 12/03/2023 14:28 EDT us Jacoby Sanchez MD IMMUNOLOGY AND SEROLOGY ORDERABLES Final Result Performing Organization Address [facility] Co de Phone Number [facility] [address] [place] [phone] * VARICELLA IGG ANTIBODY (12/03/2023 14:27 EDT) Varicella IgG Ab Positive See Note 12/04/2023 10:19 EDT [facility] Comment:Presence of detectab le Varicella Zoster virus IgG antibodies. Blood VENOUS BLOOD / Unknown Venipuncture / Unknown 12/03/2023 14:27 EDT 12/03/2023 14:28 EDT us Jacoby Sanchez MD IMMUNOLOGY AND SEROLOGY ORDERABLES Final Result [facility] [address] [place] [address] * RUBELLA IGG ANTIBODY (12/03/2023 14:27 EDT) Rubella IgG Ab Positive See Note 12/04/2023 10:23 EDT [facility] Comment:Positive for IgG ant ibodies to Rubella virus. Blood VENOUS BLOOD / Unknown Venipuncture / Unknown 12/03/2023 14:27 EDT 12/03/2023 14:28 EDT us Jacoby Sanchez MD CHEMISTRY & BLOOD GAS O RDERABLES Final Result Performing Organization Address [facility] Co de Phone Number [facility] [address] [place] [address] * MUMPS ANTIBODY IGG (12/03/2023 14:27 EDT) Mumps Antibody IgG Positive See Note 12/04/2023 10:23 EDT [facility] Comment:Presence of detectab le mumps virus IgG antibodies. Blood VENOUS BLOOD / Unknown Venipuncture / Unknown 12/03/2023 14:27 EDT 12/03/2023 14:28 EDT us Jacoby Sanchez MD IMMUNOLOGY AND SEROLOGY ORDERABLES Final Result Performing Organization Address City/[facility]/ZIP Co de Phone Number [facility] [address] [place] [address] * MEASLES IGG AB (12/03/2023 14:27 EDT) Measles IgG Ab Positive See Note 12/04/2023 10:21 EDT [facility] Comment:Presence of detectab le measles virus IgG antibodies. Blood VENOUS BLOOD / Unknown Venipuncture / Unknown 12/03/2023 14:27 EDT 12/03/2023 14:28 EDT Jacoby Sanchez MD IMMUNOLOGY AND SEROLOGY ORDERABLES Final Result Performing Organization Address City/[facility] Co de Phone Number [facility] [address] [place] [address] * HEPATITIS B SURFACE ANTIBODY (12/03/2023 14:27 EDT) Hep B Surface Ab, Quantitative >1,000.0 See Note mIU/mL 12/04/2023 9:28 EDT [facility] Comment: Reference Range for Hep B Surface Ab, Quant: Positive: >= 10.0 mIU/mL Negative: ??< 10.0 mIU/mL Patient is presumed to be immune to infection with Hepatitis B Virus. Hep B Surface Ab, Qualitative Positive See Note 12/04/2023 9:28 EDT [facility] Comment: Reference Range for Hep B Surface Ab, Qual: Unvaccinated: ??Negative Vaccinated: ??Positive Blood VENOUS BLOOD / Unknown Venipuncture / Unknown 12/03/2023 14:27 EDT 12/03/2023 14:28 EDT Jacoby Sanchez MD CHEMISTRY & BLOOD GAS O RDERABLES Final Result Performing Organization Address [facility]/ZIP Co de Phone Number [facility] [address] [place] [phone] documented in this encounter Visit Diagnoses Diagnosis Immunity status testing Antibody response examination Screening examination for pulmonary tuberculosis documented in this encounter Care Teams Salvage Cutter Relationship Specialty Start Date End Date Unknown, Provider, PCP - General 12/03/23 documented as of this encounter
[2024-05-26 16:22] LABS: Hemoglobin A1C 5.8 % (<5.7)
== END 2024-05-26 10:30 | disposition home or self-care (01) ==
LOC: NCHCN 10:29
PROVIDERS: PCP Nurse Practitioner Family; Visit Provider Family Medicine
DX: R73.01 Impaired fasting glucose (principal)
CPT/HCPCS: 83036

== ENCOUNTER 2024-10-14 01:05 | Outpatient (CLI) | payer BC, SELFPAY ==
[2024-10-14 14:08] LABS: HCT 38.3 % (36.0-46.0); HGB 13.1 g/dL (11.2-15.7); MCH 32.7 pg (27.0-33.0); MCHC 34.2 % (32.0-36.0); MCV 96 fL (80-95); MPV 9.9 fL (8.0-11.0); Platelet Count 283 10^3/uL (130-400); RBC 4.01 10^6/uL (3.93-5.22); RDW 12.2 % (11.7-14.6); RDW-SD 43.3 fL
[2024-10-14 15:21] LABS: ALT 37 U/L (14-59); AST 32 U/L (15-37); Albumin 3.7 g/dL (3.4-5.0); Alkaline Phosphatase 161 U/L (46-116); Anion Gap 4.5 mmol/L (3-11); BUN 17 mg/dL (7-18); Bilirubin, Total 0.6 mg/dL (0.2-1.0); CO2 32.5 mmol/L (21.0-32.0); CREATININE 0.6 mg/dL (0.55-1.02); Calcium 9.6 mg/dL (8.5-10.1); Chloride 102 mmol/L (98-107); Estimated GFR 105.94 (mL/min/1.73m2); Glucose 123 mg/dL (74-106); Magnesium 1.8 mg/dL (1.8-2.4); Potassium 4.1 mmol/L (3.5-5.1); Sodium 139 mmol/L (136-145); TSH 2.17 uIU/mL (0.36-3.74); Total Protein 7.4 g/dL (6.4-8.2); Vitamin B12 715 pg/mL (193-986)
[2024-10-14 15:27] LABS: Folate > 20.0 ng/mL (8.6-20.0)
[2024-10-14 22:11] LABS: T3,Free 4.6 pg/mL (2.8-5.3)
== END 2024-10-14 01:06 | disposition home or self-care (01) ==
PROVIDERS: PCP Nurse Practitioner Family; Visit Provider Nurse Practitioner Family
DX: R25.9 Unspecified abnormal involuntary movements (principal)
CPT/HCPCS: 36415; 80053; 85027; 82607; 82746; 83735; 84439; 84443; 84481

== ENCOUNTER 2024-12-06 15:33 | Outpatient (REF) | payer BC, SELFPAY | END 2024-12-06 15:34 | disposition home or self-care (01) | LOC: LBN 15:33 | PROVIDERS: PCP Nurse Practitioner Family; Visit Provider Family Medicine | DX: R39.9 Unspecified symptoms and signs involving the genitourinary system (principal) | CPT/HCPCS: 87086 ==